=== PATIENT | male | born 1945 | race African-American/Black ===

== ENCOUNTER 2019-03-19 13:58 | Inpatient (IN) ==
[2019-03-19] MEDS ORDERED: ACETAMINOPHEN 325 MG/10.15 ML UDCUP PO STA (14:23)
[2019-03-19] MEDS ORDERED: SODIUM CHLORIDE 0.9% 250 ML IV STA (14:23)
[2019-03-19] MEDS ORDERED: PIPERACILLIN/TAZOBACTAM 3,375 MG in SODIUM CHLORIDE 0.9% 100 ML IV STA (14:35)
[2019-03-19 15:08] LABS: Basophils % 0.1 % (0.0-0.8); Eosinophils % 0.1 % (0.00-10.9); Hematocrit 31.6 VOL% (42.0-52.0); Hemoglobin 10.2 GM/DL (14.0-18.0); Immature Granulocytes % 0.6 %; Immature Granulocytes Absolute 0.07 #; Lymphocytes # 0.8 10*3/uL (1.4-4.0); Lymphocytes % 7.2 % (21.2-54.2); Mean Corpuscular HGB Conc 32.3 GM/DL (32-36); Mean Corpuscular Volume 91.6 FL (87-102); Mean Platelet Volume 11.8 FL (9.6-12.0); Monocytes % 6.8 % (1.7-12.7); Neutrophils % 85.2 % (38.7-73.9); Red Blood Count 3.45 MC/CUMM (3.8-5.5); Red Cell Distribution Width 14.8 % (9.3-17.3); White Blood Count 10.9 T/CUMM (4-12)
[2019-03-19 15:14] LABS: Platelet Count 76 T/CUMM (130-400)
[2019-03-19 15:19] LABS: INR 0.9; PT Patient Result 10.1 SECS (9.6-12.2); Partial Thromboplastin Time < 21.0 SECS (20.8-36.0)
[2019-03-19 15:35] LABS: Albumin 3.4 G/DL (3.4-5.0); Bilirubin,Total 0.6 MG/DL (0.2-1.0); Calcium 9.1 MG/DL (8.5-10.1); Osmolality,Calculated 292.8 MOS/KG (273-304); Total Protein 7.7 G/DL (6.4-8.3)
[2019-03-19] MEDS ORDERED: traMADol 50 MG TABLET PO PRN (17:35)
[2019-03-19] MEDS ORDERED: DEXTROSE 50% 25 GM/50 ML VIAL IV PRN (17:46)
[2019-03-19] MEDS ORDERED: GLUCAGON 1 MG VIAL IM PRN (17:46)
[2019-03-19] MEDS ORDERED: ONDANSETRON 4 MG/2 ML VIAL IV PRN (17:46)
[2019-03-19] MEDS ORDERED: ACETAMINOPHEN 325 MG TABLET PO PRN (17:46)
[2019-03-19] MEDS ORDERED: VANCOMYCIN INJ 500 MG in SODIUM CHLORIDE 0.9% 100 ML IV PRN (18:40)
[2019-03-19] MEDS ORDERED: VANCOMYCIN INJ 1,500 MG in SODIUM CHLORIDE 0.9% 500 ML IV ONE (20:00)
[2019-03-19] MEDS ORDERED: INSULIN GLARGINE 100 UNIT/ML SUBCUT SCH (21:00)
[2019-03-19] MEDS: INSULIN REGULAR 100 UNIT/ML SUBCUT SCH (21:56)
[2019-03-19] MEDS: carvediloL 6.25 MG TABLET PO SCH (21:57)
[2019-03-20] MEDS: PIPERACILLIN/TAZOBACTAM 3,375 MG in SODIUM CHLORIDE 0.9% 100 ML IV SCH ×2 (04:00→18:46)
[2019-03-20 06:01] LABS: Basophils % 0.2 % (0.0-0.8); Eosinophils % 0.1 % (0.00-10.9); Hematocrit 29.2 VOL% (42.0-52.0); Hemoglobin 9.4 GM/DL (14.0-18.0); Immature Granulocytes % 0.5 %; Immature Granulocytes Absolute 0.06 #; Lymphocytes # 1.2 10*3/uL (1.4-4.0); Lymphocytes % 9.4 % (21.2-54.2); Mean Corpuscular HGB Conc 32.2 GM/DL (32-36); Mean Corpuscular Volume 91.5 FL (87-102); Mean Platelet Volume 11.4 FL (9.6-12.0); Monocytes % 8.6 % (1.7-12.7); Neutrophils % 81.2 % (38.7-73.9); Red Blood Count 3.19 MC/CUMM (3.8-5.5); Red Cell Distribution Width 14.8 % (9.3-17.3); White Blood Count 12.5 T/CUMM (4-12)
[2019-03-20 06:04] LABS: Platelet Count 90 T/CUMM (130-400)
[2019-03-20 06:19] LABS: Hypochromasia 1+; Ovalocytes Slight
[2019-03-20 06:20] LABS: Platelet Estimate Decreased
[2019-03-20 06:25] LABS: Calcium 8.8 MG/DL (8.5-10.1)
[2019-03-20] MEDS: INSULIN REGULAR 100 UNIT/ML SUBCUT SCH ×4 (12:11→21:59)
[2019-03-20] MEDS: carvediloL 6.25 MG TABLET PO SCH ×2 (14:53→21:59)
[2019-03-20] MEDS: ROSUVASTATIN 10 MG TABLET PO SCH (14:53)
[2019-03-20] MEDS: ASPIRIN EC 81 MG TABLET PO SCH (14:53)
[2019-03-20] MEDS: PANTOPRAZOLE 40 MG TABLET PO SCH (14:53)
[2019-03-20] MEDS: GABAPENTIN 300 MG CAPSULE PO SCH (14:53)
[2019-03-20] MEDS: GLECAPREVIR PIBRENTASVIR PO SCH (15:06)
[2019-03-20] MEDS ORDERED: VANCOMYCIN INJ 500 MG in SODIUM CHLORIDE 0.9% 100 ML IV ONE (17:00)
[2019-03-20 18:21] LABS: Apearance,Urine CLOUDY (Clear); Bilirubin,Urine Negative (Negative); Blood, Urine Large mg/dL (Negative); Glucose,Urine (UA) Negative (Negative); Ketones,Urine Negative (Negative); Nitrite,Urine Negative (Negative); Protein,Urine 100 MG/DL; RBC,Urine 2451 /HPF (0-4); Urine Color Red (Yellow); Urine Specific Gravity 1.013 (1.001-1.035); Urine Urobilinogen < 2.0 EU/DL (0.2-1.0); WBC,Urine 46 /HPF (0-6)
[2019-03-21] MEDS: PIPERACILLIN/TAZOBACTAM 3,375 MG in SODIUM CHLORIDE 0.9% 100 ML IV SCH ×2 (03:59→17:14)
[2019-03-21 05:04] LABS: Basophils % 0.1 % (0.0-0.8); Eosinophils # 0.1 10*3/uL (0.0-0.87); Eosinophils % 1.3 % (0.00-10.9); Hematocrit 28.1 VOL% (42.0-52.0); Hemoglobin 8.9 GM/DL (14.0-18.0); Immature Granulocytes % 0.4 %; Immature Granulocytes Absolute 0.03 #; Lymphocytes # 1.9 10*3/uL (1.4-4.0); Lymphocytes % 24.3 % (21.2-54.2); Mean Corpuscular HGB Conc 31.7 GM/DL (32-36); Mean Corpuscular Volume 90.6 FL (87-102); Mean Platelet Volume 11.6 FL (9.6-12.0); Monocytes % 11.6 % (1.7-12.7); Neutrophils % 62.3 % (38.7-73.9); Red Cell Distribution Width 14.7 % (9.3-17.3); White Blood Count 7.7 T/CUMM (4-12)
[2019-03-21 05:05] LABS: Platelet Count 86 T/CUMM (130-400)
[2019-03-21 05:24] LABS: Calcium 8.8 MG/DL (8.5-10.1); Osmolality,Calculated 289.7 MOS/KG (273-304)
[2019-03-21 05:35] LABS: Hypochromasia 1+; Platelet Estimate Decreased; Polychromasia Few
[2019-03-21] MEDS: INSULIN REGULAR 100 UNIT/ML SUBCUT SCH ×4 (08:34→20:47)
[2019-03-21] MEDS: GLECAPREVIR PIBRENTASVIR PO SCH (09:36)
[2019-03-21] MEDS: ROSUVASTATIN 10 MG TABLET PO SCH (09:36)
[2019-03-21] MEDS: carvediloL 6.25 MG TABLET PO SCH ×2 (09:36→20:47)
[2019-03-21] MEDS: GABAPENTIN 300 MG CAPSULE PO SCH (09:36)
[2019-03-21] MEDS: PANTOPRAZOLE 40 MG TABLET PO SCH (09:36)
[2019-03-21] MEDS: ASPIRIN EC 81 MG TABLET PO SCH (09:36)
[2019-03-22] MEDS: PIPERACILLIN/TAZOBACTAM 3,375 MG in SODIUM CHLORIDE 0.9% 100 ML IV SCH ×2 (04:21→16:38)
[2019-03-22 06:21] LABS: Basophils % 0.3 % (0.0-0.8); Eosinophils # 0.1 10*3/uL (0.0-0.87); Eosinophils % 1.3 % (0.00-10.9); Hematocrit 26.8 VOL% (42.0-52.0); Hemoglobin 8.5 GM/DL (14.0-18.0); Immature Granulocytes % 0.3 %; Immature Granulocytes Absolute 0.02 #; Lymphocytes # 1.7 10*3/uL (1.4-4.0); Mean Corpuscular HGB Conc 31.7 GM/DL (32-36); Mean Corpuscular Volume 90.2 FL (87-102); Mean Platelet Volume 11.7 FL (9.6-12.0); Monocytes % 12.7 % (1.7-12.7); Neutrophils % 61.4 % (38.7-73.9); Red Blood Count 2.97 MC/CUMM (3.8-5.5); Red Cell Distribution Width 14.3 % (9.3-17.3)
[2019-03-22 06:24] LABS: Platelet Count 91 T/CUMM (130-400)
[2019-03-22 06:44] LABS: Calcium 8.7 MG/DL (8.5-10.1); Osmolality,Calculated 295.4 MOS/KG (273-304)
[2019-03-22] MEDS: INSULIN REGULAR 100 UNIT/ML SUBCUT SCH ×4 (08:26→20:33)
[2019-03-22] MEDS: ROSUVASTATIN 10 MG TABLET PO SCH (09:39)
[2019-03-22] MEDS: ASPIRIN EC 81 MG TABLET PO SCH (09:39)
[2019-03-22] MEDS: carvediloL 6.25 MG TABLET PO SCH ×2 (09:40→20:33)
[2019-03-22] MEDS: GLECAPREVIR PIBRENTASVIR PO SCH (09:40)
[2019-03-22] MEDS: PANTOPRAZOLE 40 MG TABLET PO SCH (09:40)
[2019-03-22] MEDS: GABAPENTIN 300 MG CAPSULE PO SCH (09:41)
[2019-03-23] MEDS: PIPERACILLIN/TAZOBACTAM 3,375 MG in SODIUM CHLORIDE 0.9% 100 ML IV SCH ×2 (04:03→18:25)
[2019-03-23 05:04] LABS: Basophils % 0.3 % (0.0-0.8); Eosinophils # 0.1 10*3/uL (0.0-0.87); Eosinophils % 1.8 % (0.00-10.9); Hematocrit 27.2 VOL% (42.0-52.0); Hemoglobin 8.9 GM/DL (14.0-18.0); Immature Granulocytes % 0.4 %; Immature Granulocytes Absolute 0.03 #; Lymphocytes # 1.2 10*3/uL (1.4-4.0); Lymphocytes % 17.4 % (21.2-54.2); Mean Corpuscular HGB Conc 32.7 GM/DL (32-36); Mean Corpuscular Volume 90.1 FL (87-102); Mean Platelet Volume 11.1 FL (9.6-12.0); Monocytes % 12.4 % (1.7-12.7); Neutrophils % 67.7 % (38.7-73.9); Red Blood Count 3.02 MC/CUMM (3.8-5.5); Red Cell Distribution Width 14.2 % (9.3-17.3); White Blood Count 6.8 T/CUMM (4-12)
[2019-03-23 05:05] LABS: Platelet Count 99 T/CUMM (130-400)
[2019-03-23 05:19] LABS: Calcium 8.4 MG/DL (8.5-10.1); Osmolality,Calculated 297.8 MOS/KG (273-304)
[2019-03-23 05:30] LABS: Microcytosis Slight; Platelet Estimate Decreased
[2019-03-23] MEDS: INSULIN REGULAR 100 UNIT/ML SUBCUT SCH ×4 (08:10→20:30)
[2019-03-23] MEDS: ASPIRIN EC 81 MG TABLET PO SCH (08:10)
[2019-03-23] MEDS: carvediloL 6.25 MG TABLET PO SCH ×2 (08:11→20:30)
[2019-03-23] MEDS: GABAPENTIN 300 MG CAPSULE PO SCH (08:11)
[2019-03-23] MEDS: PANTOPRAZOLE 40 MG TABLET PO SCH (08:11)
[2019-03-23] MEDS: ROSUVASTATIN 10 MG TABLET PO SCH (08:11)
[2019-03-23] MEDS: GLECAPREVIR PIBRENTASVIR PO SCH (14:36)
[2019-03-23] MEDS ORDERED: VANCOMYCIN INJ 500 MG in SODIUM CHLORIDE 0.9% 100 ML IV ONE (17:00)
[2019-03-23] MEDS: ACETAMINOPHEN 500 MG TABLET PO PRN (17:20)
[2019-03-24] MEDS: PIPERACILLIN/TAZOBACTAM 3,375 MG in SODIUM CHLORIDE 0.9% 100 ML IV SCH (03:19)
[2019-03-24 05:37] LABS: Basophils % 0.4 % (0.0-0.8); Eosinophils # 0.1 10*3/uL (0.0-0.87); Eosinophils % 1.8 % (0.00-10.9); Hemoglobin 9.4 GM/DL (14.0-18.0); Immature Granulocytes % 0.3 %; Immature Granulocytes Absolute 0.02 #; Lymphocytes # 1.6 10*3/uL (1.4-4.0); Lymphocytes % 23.4 % (21.2-54.2); Mean Corpuscular HGB Conc 32.4 GM/DL (32-36); Mean Corpuscular Volume 89.8 FL (87-102); Mean Platelet Volume 11.5 FL (9.6-12.0); Monocytes % 9.6 % (1.7-12.7); Neutrophils % 64.5 % (38.7-73.9); Platelet Count 111 T/CUMM (130-400); Red Blood Count 3.23 MC/CUMM (3.8-5.5); White Blood Count 6.8 T/CUMM (4-12)
[2019-03-24 06:01] LABS: Calcium 8.8 MG/DL (8.5-10.1); Osmolality,Calculated 286.8 MOS/KG (273-304)
[2019-03-24] MEDS: INSULIN REGULAR 100 UNIT/ML SUBCUT SCH ×2 (08:16→12:33)
[2019-03-24] MEDS: PANTOPRAZOLE 40 MG TABLET PO SCH (08:16)
[2019-03-24] MEDS: carvediloL 6.25 MG TABLET PO SCH (08:16)
[2019-03-24] MEDS: ASPIRIN EC 81 MG TABLET PO SCH (08:16)
[2019-03-24] MEDS: GLECAPREVIR PIBRENTASVIR PO SCH (08:16)
[2019-03-24] MEDS: GABAPENTIN 300 MG CAPSULE PO SCH (08:17)
[2019-03-24] MEDS: ROSUVASTATIN 10 MG TABLET PO SCH (08:17)
[2019-03-24] MEDS: ACETAMINOPHEN 500 MG TABLET PO PRN (08:18)
[2019-03-24 11:56] VITALS: BP 110/61
[2019-03-25] MEDS ORDERED: EPOETIN ALFA 2,000 UNIT/1 ML VIAL SUBCUT SCH (09:00)
== END 2019-03-24 14:22 | disposition home or self-care (01) | DRG 867 ==
LOC: N.ED 13:58 → N.EDINP 17:46 → N.5E 18:32
PROVIDERS: ADMIT Hospitalist; ATTEND Hospitalist

== ENCOUNTER 2019-08-27 13:02 | Inpatient (IN) ==
[~2019-08-27 13:02] MED LIST: ASPIRIN 325 MG TABLET PO ONE; DEXTROSE 5% NACL 0.45% 1,000 ML IV SCH; DIAZEPAM 5 MG TABLET PO ONE; HEPARIN/NACL 0.9% 2 UNITS/ML 1,000 ML IV ONE; LIDOCAINE 1%/EPI INJ 20 ML VIAL ONE; MAGNESIUM SULF RIDER 2 GM in PREMIX 1 EACH IV PRN; POTASSIUM CHLORIDE RIDER 10 MEQ in PREMIX 1 EACH IV PRN; diphenhydrAMINE CAP 25 MG CAPSULE PO ONE
[2019-08-27] MEDS ORDERED: DIAZEPAM 5 MG TABLET ONE (13:43)
[2019-08-27] MEDS ORDERED: diphenhydrAMINE CAP 25 MG CAPSULE ONE (13:43)
[2019-08-27] MEDS ORDERED: MIDAZOLAM 2 MG/2 ML VIAL ONE (13:55)
[2019-08-27] MEDS ORDERED: fentaNYL 100 MCG/2 ML VIAL ONE (14:21)
[2019-08-27] MEDS ORDERED: traMADol 50 MG TABLET PO PRN (14:47)
[2019-08-27] MEDS ORDERED: GABAPENTIN 300 MG CAPSULE PO PRN (14:47)
[2019-08-27] MEDS: NITROGLYCERIN SL 0.4 MG TABLET SL PRN ×3 (16:37→16:47)
[2019-08-27] MEDS ORDERED: PROMETHAZINE 25 MG TABLET PO PRN (17:14)
[2019-08-27] MEDS ORDERED: MORPHINE 4 MG/1 ML VIAL IV PRN (17:14)
[2019-08-27] MEDS ORDERED: ONDANSETRON 4 MG/2 ML VIAL IV PRN (17:14)
[2019-08-27] MEDS ORDERED: ZALEPLON 5 MG CAPSULE PO PRN (17:14)
[2019-08-27] MEDS ORDERED: NITROGLYCERIN DRIP 50 MG/250 ML BOTTLE IV PRN (17:14)
[2019-08-27] MEDS ORDERED: ALUMINUM/MAGNES/SIMETH MAX STR 30 ML UDCUP PO PRN (17:14)
[2019-08-27] MEDS: ENOXAPARIN 80 MG/0.8 ML SYRINGE SUBCUT SCH (17:54)
[2019-08-27 19:26] LABS: Hepatitis B Core IgM Quant < 0.05 Index; Hepatitis B Surface Ag Quant < 0.10 Index; Hepatitis B Surface Ag Result Negative (Negative); Hepatitis C Virus Ab Quant > 11.00 Index; Hepatitis C Virus Ab Result Positive (Negative)
[2019-08-27] MEDS ORDERED: hydrALAZINE 25 MG TABLET PO SCH (21:00)
[2019-08-27] MEDS: MEGESTROL 40 MG TABLET PO SCH (21:47)
[2019-08-27] MEDS: carvediloL 25 MG TABLET PO SCH (21:48)
[2019-08-27] MEDS: INSULIN GLARGINE 100 UNIT/ML SUBCUT SCH (21:48)
[2019-08-28 06:03] LABS: Basophils % 0.3 % (0.0-0.8); Eosinophils # 0.2 10*3/uL (0.0-0.87); Eosinophils % 3.5 % (0.00-10.9); Hematocrit 28.5 VOL% (42.0-52.0); Hemoglobin 9.1 GM/DL (14.0-18.0); Immature Granulocytes % 0.3 %; Immature Granulocytes Absolute 0.02 #; Lymphocytes % 31.3 % (21.2-54.2); Mean Corpuscular HGB Conc 31.9 GM/DL (32-36); Mean Corpuscular Volume 86.9 FL (87-102); Mean Platelet Volume 11.3 FL (9.6-12.0); Monocytes % 10.1 % (1.7-12.7); Neutrophils % 54.5 % (38.7-73.9); Platelet Count 138 T/CUMM (130-400); Red Blood Count 3.28 MC/CUMM (3.8-5.5); Red Cell Distribution Width 15.9 % (9.3-17.3); White Blood Count 6.4 T/CUMM (4-12)
[2019-08-28 06:15] LABS: Calcium 9.4 MG/DL (8.5-10.1); Osmolality,Calculated 270.1 MOS/KG (273-304)
[2019-08-28] MEDS: ENOXAPARIN 80 MG/0.8 ML SYRINGE SUBCUT SCH ×2 (06:37→17:58)
[2019-08-28] MEDS ORDERED: NITROGLYCERIN 2% OINT 1 INCH/GM PACK TOP SCH ×2 (07:37→12:00)
[2019-08-28] MEDS ORDERED: ROSUVASTATIN 10 MG TABLET PO SCH (09:00)
[2019-08-28 09:55] LABS: Albumin 3.5 G/DL (3.4-5.0); Bilirubin,Direct 0.16 MG/DL (0.0-0.20); Bilirubin,Indirect 0.2 MG/DL (0.0-1.0); Bilirubin,Total 0.4 MG/DL (0.2-1.0); Total Protein 7.5 G/DL (6.4-8.3)
[2019-08-28] MEDS: carvediloL 25 MG TABLET PO SCH ×2 (09:58→21:43)
[2019-08-28] MEDS: ASPIRIN EC 81 MG TABLET PO SCH (09:58)
[2019-08-28] MEDS: PANTOPRAZOLE 40 MG TABLET PO SCH (09:58)
[2019-08-28] MEDS: amLODIPine 5 MG TABLET PO SCH (09:58)
[2019-08-28] MEDS: MEGESTROL 40 MG TABLET PO SCH ×2 (09:58→21:43)
[2019-08-28] MEDS: SACUBITRIL/VALSARTAN 49-51 MG TABLET PO SCH ×2 (09:58→21:43)
[2019-08-28] MEDS: NITROGLYCERIN 2% OINT 1 INCH/GM PACK TOP SCH ×3 (09:59→21:44)
[2019-08-28] MEDS: EPOETIN ALFA-EPBX 2,000 UNIT/ML VIAL SUBCUT SCH (10:40)
[2019-08-28] MEDS: ROSUVASTATIN 20 MG TABLET PO SCH (21:44)
[2019-08-28] MEDS: INSULIN GLARGINE 100 UNIT/ML SUBCUT SCH (21:45)
[2019-08-29 04:30] LABS: Basophils % 0.4 % (0.0-0.8); Eosinophils # 0.2 10*3/uL (0.0-0.87); Hematocrit 26.4 VOL% (42.0-52.0); Hemoglobin 8.6 GM/DL (14.0-18.0); Immature Granulocytes % 0.2 %; Immature Granulocytes Absolute 0.01 #; Mean Corpuscular HGB Conc 32.6 GM/DL (32-36); Mean Corpuscular Volume 85.4 FL (87-102); Mean Platelet Volume 11.1 FL (9.6-12.0); Monocytes % 9.9 % (1.7-12.7); Neutrophils % 50.5 % (38.7-73.9); Platelet Count 98 T/CUMM (130-400); Red Blood Count 3.09 MC/CUMM (3.8-5.5); Red Cell Distribution Width 16.1 % (9.3-17.3); White Blood Count 5.6 T/CUMM (4-12)
[2019-08-29 05:07] LABS: Calcium 9.4 MG/DL (8.5-10.1); Osmolality,Calculated 280.1 MOS/KG (273-304)
[2019-08-29] MEDS: ENOXAPARIN 80 MG/0.8 ML SYRINGE SUBCUT SCH (05:09)
[2019-08-29] MEDS: NITROGLYCERIN 2% OINT 1 INCH/GM PACK TOP SCH ×4 (05:09→21:14)
[2019-08-29 05:11] LABS: Risk Ratio 5.36; VLDL CHOLESTEROL 30.4 MG/DL
[2019-08-29 06:03] LABS: Anisocytosis 1+; Hypochromasia 1+; Microcytosis 1+; Platelet Estimate Decreased
[2019-08-29] MEDS: SACUBITRIL/VALSARTAN 49-51 MG TABLET PO SCH ×2 (10:10→21:13)
[2019-08-29] MEDS: ASPIRIN EC 81 MG TABLET PO SCH (10:11)
[2019-08-29] MEDS: PANTOPRAZOLE 40 MG TABLET PO SCH (10:11)
[2019-08-29] MEDS: amLODIPine 5 MG TABLET PO SCH (10:11)
[2019-08-29] MEDS: carvediloL 25 MG TABLET PO SCH ×2 (10:11→21:14)
[2019-08-29] MEDS: MEGESTROL 40 MG TABLET PO SCH ×2 (10:13→21:14)
[2019-08-29] MEDS: ACETAMINOPHEN 325 MG TABLET PO PRN (10:22)
[2019-08-29] MEDS ORDERED: GLUCAGON 1 MG VIAL IM PRN (15:52)
[2019-08-29] MEDS ORDERED: DEXTROSE 10% 250 ML BAG IV PRN (15:52)
[2019-08-29] MEDS ORDERED: SODIUM CHLORIDE 0.9% 1,000 ML IV SCH (16:00)
[2019-08-29] MEDS: INSULIN GLARGINE 100 UNIT/ML SUBCUT SCH (21:14)
[2019-08-29] MEDS: ROSUVASTATIN 20 MG TABLET PO SCH (21:14)
[2019-08-29] MEDS: CHLORHEXIDINE 0.12% ORAL RINSE 60 ML BOTTLE SWISH/SPIT SCH (21:15)
[2019-08-30] MEDS: NITROGLYCERIN 2% OINT 1 INCH/GM PACK TOP SCH ×4 (04:25→21:00)
[2019-08-30 05:18] LABS: Basophils % 0.4 % (0.0-0.8); Eosinophils # 0.2 10*3/uL (0.0-0.87); Eosinophils % 3.1 % (0.00-10.9); Hematocrit 27.5 VOL% (42.0-52.0); Hemoglobin 8.9 GM/DL (14.0-18.0); Immature Granulocytes % 0.2 %; Immature Granulocytes Absolute 0.01 #; Lymphocytes # 1.6 10*3/uL (1.4-4.0); Lymphocytes % 32.5 % (21.2-54.2); Mean Corpuscular HGB Conc 32.4 GM/DL (32-36); Mean Corpuscular Volume 85.4 FL (87-102); Mean Platelet Volume 11.8 FL (9.6-12.0); Neutrophils % 52.8 % (38.7-73.9); Platelet Count 105 T/CUMM (130-400); Red Blood Count 3.22 MC/CUMM (3.8-5.5); Red Cell Distribution Width 16.5 % (9.3-17.3); White Blood Count 4.9 T/CUMM (4-12)
[2019-08-30 05:34] LABS: Calcium 9.2 MG/DL (8.5-10.1); Osmolality,Calculated 281.7 MOS/KG (273-304)
[2019-08-30 05:37] LABS: Albumin 3.1 G/DL (3.4-5.0); Bilirubin,Total 0.6 MG/DL (0.2-1.0); Calcium 9.3 MG/DL (8.5-10.1); Osmolality,Calculated 283.5 MOS/KG (273-304); Total Protein 6.8 G/DL (6.4-8.3)
[2019-08-30] MEDS ORDERED: ENOXAPARIN 80 MG/0.8 ML SYRINGE SUBCUT SCH (06:00)
[2019-08-30 09:18] LABS: ABG Base Excess 2.6 MMOL/L (-2.5-2.5); ABG HCO3 25.6 MMOL/L (20-26); ABG Oxygen Saturation 89.5 % (95-100); ABG PCO2 32.8 MM HG (35-48); ABG PH 7.511 (7.35-7.45); ABG PO2 83.7 MM HG (80-95); ABG TCO2 26.7 MMOL/L (23-27)
[2019-08-30] MEDS: carvediloL 25 MG TABLET PO SCH ×2 (09:59→21:00)
[2019-08-30] MEDS: ASPIRIN EC 81 MG TABLET PO SCH (09:59)
[2019-08-30] MEDS: SACUBITRIL/VALSARTAN 49-51 MG TABLET PO SCH ×2 (09:59→21:00)
[2019-08-30] MEDS: amLODIPine 5 MG TABLET PO SCH (09:59)
[2019-08-30] MEDS: MEGESTROL 40 MG TABLET PO SCH ×2 (09:59→21:00)
[2019-08-30] MEDS: PANTOPRAZOLE 40 MG TABLET PO SCH (09:59)
[2019-08-30] MEDS: CHLORHEXIDINE 0.12% ORAL RINSE 60 ML BOTTLE SWISH/SPIT SCH ×2 (09:59→21:02)
[2019-08-30] MEDS: CHLORHEXIDINE 4% SOLN 118 ML BOTTLE TOP SCH ×2 (10:40→21:00)
[2019-08-30] MEDS: ACETAMINOPHEN 325 MG TABLET PO PRN (20:59)
[2019-08-30] MEDS: ROSUVASTATIN 20 MG TABLET PO SCH (21:00)
[2019-08-30] MEDS: INSULIN GLARGINE 100 UNIT/ML SUBCUT SCH (21:18)
[2019-08-31] MEDS: NITROGLYCERIN 2% OINT 1 INCH/GM PACK TOP SCH ×2 (04:01→09:00)
[2019-08-31] MEDS: CHLORHEXIDINE 4% SOLN 118 ML BOTTLE TOP SCH ×2 (04:20→09:00)
[2019-08-31 05:41] LABS: Basophils % 0.3 % (0.0-0.8); Eosinophils # 0.2 10*3/uL (0.0-0.87); Eosinophils % 3.4 % (0.00-10.9); Hematocrit 29.4 VOL% (42.0-52.0); Hemoglobin 9.7 GM/DL (14.0-18.0); Immature Granulocytes % 0.3 %; Immature Granulocytes Absolute 0.02 #; Lymphocytes % 31.5 % (21.2-54.2); Mean Corpuscular Volume 86.2 FL (87-102); Mean Platelet Volume 12.1 FL (9.6-12.0); Monocytes % 8.2 % (1.7-12.7); Neutrophils % 56.3 % (38.7-73.9); Platelet Count 120 T/CUMM (130-400); Red Blood Count 3.41 MC/CUMM (3.8-5.5); Red Cell Distribution Width 16.9 % (9.3-17.3); White Blood Count 6.5 T/CUMM (4-12)
[2019-08-31] MEDS ORDERED: VANCOMYCIN 500 MG VIAL ONE (05:53)
[2019-08-31] MEDS ORDERED: HEPARIN 1,000 UNIT/1 ML VIAL ONE ×2 (05:53→05:55)
[2019-08-31] MEDS ORDERED: VANCOMYCIN 1,000 MG VIAL ONE ×2 (05:54→06:03)
[2019-08-31] MEDS ORDERED: FAMOTIDINE 20 MG TABLET PO ONE (05:54)
[2019-08-31] MEDS ORDERED: DIAZEPAM 5 MG TABLET PO ONE (05:55)
[2019-08-31] MEDS ORDERED: PAPAVERINE 60 MG/2 ML VIAL ONE (05:55)
[2019-08-31 06:02] LABS: Calcium 9.8 MG/DL (8.5-10.1)
[2019-08-31] MEDS: CHLORHEXIDINE 0.12% ORAL RINSE 60 ML BOTTLE SWISH/SPIT SCH ×3 (06:03→20:47)
[2019-08-31] MEDS: carvediloL 25 MG TABLET PO SCH ×2 (06:03→09:00)
[2019-08-31 06:05] LABS: Calcium 9.9 MG/DL (8.5-10.1)
[2019-08-31] MEDS ORDERED: CEFUROXIME INJ 1,500 MG in SODIUM CHLORIDE 0.9% 100 ML IV ONE (06:30)
[2019-08-31] MEDS ORDERED: SODIUM CHLORIDE 0.9% 1,000 ML IV SCH (06:30)
[2019-08-31 08:06] LABS: ABG Base Excess 0.7 MMOL/L (-2.5-2.5); ABG HCO3 22.6 MMOL/L (20-26); ABG PH 7.509 (7.35-7.45); ABG PO2 473.2 MM HG (80-95); ABG TCO2 23.5 MMOL/L (23-27); Glucose Heart Surgery 126 MG/DL (74-106); Ionized Calcium Arterial 1.11 MMOL/L (1.21-1.46); PH Patient Temp Arterial 7.509; PO2 Patient Temp Arterial 473.2 MM HG; Patient Temperature 37 CELCIUS; Potassium Heart/CVR 3.8 MMOL/L (3.5-5.1); Sodium Heart/CVR 135 MMOL/L (135-145)
[2019-08-31 08:13] LABS: ABG Oxygen Saturation 99.9 % (95-100)
[2019-08-31 08:14] LABS: Hematocrit Heart Surgery 22.6 PERCENT (42-52); Hemoglobin Heart Surgery 7.6 G/DL (14.0-18.0)
[2019-08-31 08:34] LABS: Apearance,Urine CLEAR (Clear); Bacteria,Urine Occasional /HPF (Few); Bilirubin,Urine Negative (Negative); Blood, Urine Moderate mg/dL (Negative); Glucose,Urine (UA) Negative (Negative); Ketones,Urine Negative (Negative); Nitrite,Urine Negative (Negative); Protein,Urine >=500 MG/DL; RBC,Urine 141 /HPF (0-4); Squamous Epithelial Cell,Urine Occasional /HPF (0-10); Urine Color Yellow (Yellow); Urine Specific Gravity 1.012 (1.001-1.035); Urine Urobilinogen < 2.0 EU/DL (0.2-1.0); WBC,Urine 1 /HPF (0-6)
[2019-08-31 08:56] LABS: Hematocrit Heart Surgery 18.3 PERCENT (42-52); PCO2 Patient Temp Venous 31.7 MM HG; PH Patient Temp Venous 7.486; Potassium Heart/CVR 4.5 MMOL/L (3.5-5.1); VBG Base Excess 0.8 MEQ/L (0-4); VBG HCO3 24.9 MEQ/L (24-28); VBG Oxygen Saturation 77.5 %; VBG PCO2 34.9 MMHG (41-51); VBG PH 7.456; VBG PO2 45.9 MMHG (17-40)
[2019-08-31 08:57] LABS: Hemoglobin Heart Surgery 5.8 G/DL (14.0-18.0)
[2019-08-31] MEDS: SACUBITRIL/VALSARTAN 49-51 MG TABLET PO SCH (09:00)
[2019-08-31] MEDS: PANTOPRAZOLE 40 MG TABLET PO SCH (09:00)
[2019-08-31] MEDS: EPOETIN ALFA-EPBX 2,000 UNIT/ML VIAL SUBCUT SCH (09:00)
[2019-08-31] MEDS: ASPIRIN EC 81 MG TABLET PO SCH (09:00)
[2019-08-31] MEDS: MEGESTROL 40 MG TABLET PO SCH (09:00)
[2019-08-31] MEDS: amLODIPine 5 MG TABLET PO SCH (09:00)
[2019-08-31] MEDS ORDERED: NITROPRUSSIDE 50 MG/2 ML VIAL ONE (09:27)
[2019-08-31] MEDS ORDERED: CALCIUM CHLORIDE 1,000 MG/10 ML SYRINGE IV ONE ×2 (09:27→14:30)
[2019-08-31] MEDS ORDERED: SODIUM BICARBONATE 50 MEQ/50 ML VIAL IV ONE ×2 (09:27→10:34)
[2019-08-31] MEDS ORDERED: PHENYLEPHRINE DRIP 40 MG/250 ML PREMIX IV ONE (09:27)
[2019-08-31] MEDS ORDERED: POTASSIUM CHLORIDE RIDER 100 ML IV ONE (09:28)
[2019-08-31 09:31] LABS: Hematocrit Heart Surgery 26.1 PERCENT (42-52); Hemoglobin Heart Surgery 8.4 G/DL (14.0-18.0); PCO2 Patient Temp Venous 26.2 MM HG; PH Patient Temp Venous 7.47; Potassium Heart/CVR 4.1 MMOL/L (3.5-5.1); VBG Base Excess -3.7 MEQ/L (0-4); VBG HCO3 21.1 MEQ/L (24-28); VBG Oxygen Saturation 84.4 %; VBG PCO2 30.3 MMHG (41-51); VBG PH 7.426; VBG PO2 51.5 MMHG (17-40)
[2019-08-31 10:00] LABS: Hematocrit Heart Surgery 23.7 PERCENT (42-52); Hemoglobin Heart Surgery 7.6 G/DL (14.0-18.0); PCO2 Patient Temp Venous 30.4 MM HG; PH Patient Temp Venous 7.416; PO2 Patient Temp Venous 39.8 MM HG; Potassium Heart/CVR 4.3 MMOL/L (3.5-5.1); VBG Base Excess -4.3 MEQ/L (0-4); VBG HCO3 20.6 MEQ/L (24-28); VBG Oxygen Saturation 75.4 %; VBG PCO2 31.9 MMHG (41-51); VBG PH 7.402; VBG PO2 42.6 MMHG (17-40)
[2019-08-31] MEDS ORDERED: MANNITOL 100 GM/500 ML BAG IV ONE (10:33)
[2019-08-31] MEDS ORDERED: LIDOCAINE 2% 5 ML VIAL ONE (10:33)
[2019-08-31] MEDS ORDERED: DEXTROSE 5% KCL 20 MEQ 20 MEQ/1,000 ML BAG IV ONE (10:33)
[2019-08-31] MEDS ORDERED: HEPARIN 10,000 UNIT/10 ML VIAL ONE (10:34)
[2019-08-31] MEDS ORDERED: methylPREDNISolone SOD SUC 1,000 MG/8 ML VIAL ONE (10:34)
[2019-08-31] MEDS ORDERED: MAGNESIUM SULFATE 5 GM/10 ML VIAL IV ONE (10:34)
[2019-08-31] MEDS ORDERED: PROTAMINE SULFATE 50 MG/5 ML VIAL IV ONE ×4 (10:34→17:33)
[2019-08-31] MEDS ORDERED: FUROSEMIDE 20 MG/2 ML VIAL ONE (10:34)
[2019-08-31] MEDS ORDERED: ALBUMIN 25% 25 GM/100 ML VIAL IV ONE (10:34)
[2019-08-31] MEDS ORDERED: PROTAMINE SULFATE 250 MG/25 ML VIAL IV ONE (10:34)
[2019-08-31 10:41] LABS: ABG Base Excess -2.5 MMOL/L (-2.5-2.5); ABG HCO3 22.2 MMOL/L (20-26); ABG Oxygen Saturation 96.2 % (95-100); ABG PCO2 32.9 MM HG (35-48); ABG PH 7.421 (7.35-7.45); Glucose Heart Surgery 188 MG/DL (74-106); Hematocrit Heart Surgery 24.6 PERCENT (42-52); Hemoglobin Heart Surgery 7.9 G/DL (14.0-18.0); Ionized Calcium Arterial 1.06 MMOL/L (1.21-1.46); PCO2 Patient Temp Arterial 32.9 MMHG; PH Patient Temp Arterial 7.421; Patient Temperature 37 CELCIUS; Potassium Heart/CVR 4.3 MMOL/L (3.5-5.1); Sodium Heart/CVR 136 MMOL/L (135-145)
[2019-08-31] MEDS ORDERED: THROMBIN TOPICAL (RECOMBINANT) 5,000 UNIT VIAL TOP ONE (10:51)
[2019-08-31] MEDS ORDERED: NITROGLYCERIN DRIP 0 MG/0 ML BOTTLE IV ONE (11:09)
[2019-08-31] MEDS ORDERED: MAGNESIUM SULF RIDER 2 GM in PREMIX 1 EACH IV PRN (11:22)
[2019-08-31] MEDS ORDERED: VECURONIUM 10 MG VIAL IV PRN ×2 (11:22)
[2019-08-31] MEDS ORDERED: CALCIUM CHLORIDE 1,000 MG/10 ML SYRINGE IV PRN (11:22)
[2019-08-31] MEDS ORDERED: INSULIN REGULAR 100 UNIT/ML IV ONE (11:22)
[2019-08-31] MEDS ORDERED: ACETAMINOPHEN 650 MG SUPP RECTAL PRN (11:22)
[2019-08-31] MEDS ORDERED: POTASSIUM CHLORIDE RIDER 20 MEQ in PREMIX 1 EACH IV PRN (11:22)
[2019-08-31] MEDS ORDERED: MORPHINE 10 MG/1 ML VIAL IV PRN (11:22)
[2019-08-31] MEDS ORDERED: CHLORHEXIDINE 4% SOLN 118 ML BOTTLE TOP PRN (11:22)
[2019-08-31] MEDS ORDERED: INSULIN REGULAR 100 UNIT/ML IV PRN (11:22)
[2019-08-31] MEDS ORDERED: MIDAZOLAM 2 MG/2 ML VIAL IV PRN (11:22)
[2019-08-31] MEDS ORDERED: NITROPRUSSIDE 100 MG in DEXTROSE 5% 250 ML IV PRN (11:22)
[2019-08-31] MEDS ORDERED: LACTATED RINGERS 250 ML IV PRN (11:22)
[2019-08-31] MEDS ORDERED: MAGNESIUM SULF RIDER 4 GM in PREMIX 1 EACH IV PRN (11:22)
[2019-08-31] MEDS ORDERED: MIDAZOLAM 10 MG/2 ML VIAL IV PRN (11:22)
[2019-08-31] MEDS ORDERED: ONDANSETRON 4 MG/2 ML VIAL IV PRN (11:22)
[2019-08-31] MEDS ORDERED: POTASSIUM CHLORIDE RIDER 10 MEQ in PREMIX 1 EACH IV PRN (11:22)
[2019-08-31] MEDS ORDERED: DEXTROSE 10% 250 ML BAG IV PRN ×2 (11:22)
[2019-08-31] MEDS ORDERED: INSULIN REGULAR DRIP 100 ML IV SCH (11:30)
[2019-08-31] MEDS ORDERED: SODIUM CHLORIDE 0.45% 1,000 ML IV SCH (11:30)
[2019-08-31] MEDS: PHENYLEPHRINE DRIP 40 MG/250 ML PREMIX IV PRN ×3 (12:00→20:46)
[2019-08-31] MEDS: SODIUM CHLORIDE 0.45% 1,000 ML IV SCH (12:00)
[2019-08-31] MEDS ORDERED: SODIUM CHLORIDE 0.9% 1,000 ML IV PRN ×2 (12:05→13:59)
[2019-08-31] MEDS ORDERED: CALCIUM CHLORIDE 1,000 MG/10 ML VIAL IV ONE (12:08)
[2019-08-31] MEDS ORDERED: PHENYLEPHRINE DRIP 20 MG/250 ML PREMIX IV ONE (12:08)
[2019-08-31] MEDS ORDERED: MIDAZOLAM 10 MG/2 ML VIAL ONE ×2 (12:08)
[2019-08-31] MEDS ORDERED: SUFentanil 250 MCG/5 ML AMP ONE (12:08)
[2019-08-31] MEDS ORDERED: SEVOFLURANE 1 UNIT/15 MINUTE INH ONE (12:08)
[2019-08-31] MEDS ORDERED: HEPARIN/NACL 0.9% 2 UNITS/ML 500 ML IV ONE (12:08)
[2019-08-31] MEDS ORDERED: AMINOCAPROIC ACID 5,000 MG/20 ML VIAL ONE (12:09)
[2019-08-31] MEDS ORDERED: LACTATED RINGERS 1,000 ML IV ONE (12:09)
[2019-08-31] MEDS ORDERED: NITROGLYCERIN DRIP 50 MG/250 ML BOTTLE IV ONE (12:09)
[2019-08-31] MEDS ORDERED: SODIUM CHLORIDE 0.9% 250 ML IV ONE (12:09)
[2019-08-31] MEDS ORDERED: VECURONIUM 10 MG VIAL IV ONE (12:09)
[2019-08-31] MEDS ORDERED: PHENYLEPHRINE 1 MG/10 ML SYRINGE IV ONE (12:09)
[2019-08-31] MEDS ORDERED: SODIUM CHLORIDE 0.9% 1,000 ML IV ONE (12:09)
[2019-08-31 12:22] LABS: ABG Base Excess -3.8 MMOL/L (-2.5-2.5); ABG HCO3 21.2 MMOL/L (20-26); ABG PCO2 30.2 MM HG (35-48); ABG PH 7.427 (7.35-7.45); ABG TCO2 18.6 MMOL/L (23-27); Glucose Heart Surgery 193 MG/DL (74-106); Hematocrit Heart Surgery 23.8 PERCENT (42-52); Hemoglobin Heart Surgery 7.6 G/DL (14.0-18.0); Potassium Heart/CVR 4.3 MMOL/L (3.5-5.1)
[2019-08-31 12:31] LABS: Basophils % 0.2 % (0.0-0.8); Eosinophils # 0.1 10*3/uL (0.0-0.87); Hematocrit 21.8 VOL% (42.0-52.0); Immature Granulocytes % 0.9 %; Lymphocytes # 1.1 10*3/uL (1.4-4.0); Lymphocytes % 10.4 % (21.2-54.2); Mean Corpuscular HGB Conc 33.5 GM/DL (32-36); Mean Corpuscular Volume 87.6 FL (87-102); Mean Platelet Volume 10.7 FL (9.6-12.0); Monocytes % 5.4 % (1.7-12.7); Neutrophils % 82.1 % (38.7-73.9); Platelet Count 107 T/CUMM (130-400); Red Cell Distribution Width 16.7 % (9.3-17.3)
[2019-08-31 12:32] LABS: Hemoglobin 7.3 GM/DL (14.0-18.0); Red Blood Count 2.49 MC/CUMM (3.8-5.5); White Blood Count 10.5 T/CUMM (4-12)
[2019-08-31 12:41] LABS: INR 1.2; PT Patient Result 13.1 SECS (9.6-12.2); Partial Thromboplastin Time 27.2 SECS (20.8-36.0)
[2019-08-31 12:45] LABS: CKMB % 8.1 %
[2019-08-31 12:49] LABS: Troponin I 11.2 NG/ML (0.00-0.045)
[2019-08-31 12:51] LABS: Albumin 2.8 G/DL (3.4-5.0); Bilirubin,Total 0.5 MG/DL (0.2-1.0); Calcium 9.7 MG/DL (8.5-10.1); Osmolality,Calculated 289.5 MOS/KG (273-304); Total Protein 5.3 G/DL (6.4-8.3)
[2019-08-31] MEDS: ALBUMIN 5% 12.5 GM in PREMIX 1 EACH IV PRN ×3 (14:24→15:22)
[2019-08-31] MEDS ORDERED: CALCIUM CHLORIDE 1,000 MG in SODIUM CHLORIDE 0.9% 100 ML IV ONE (14:30)
[2019-08-31] MEDS: MORPHINE 4 MG/1 ML VIAL IV PRN ×2 (16:30→21:18)
[2019-08-31 16:46] LABS: ABG Base Excess 4.6 MMOL/L (-2.5-2.5); ABG HCO3 28.5 MMOL/L (20-26); ABG Oxygen Saturation 97.3 % (95-100); ABG PCO2 37.4 MM HG (35-48); ABG PH 7.485 (7.35-7.45); ABG TCO2 25.4 MMOL/L (23-27); Glucose Heart Surgery 100 MG/DL (74-106); Hematocrit Heart Surgery 31.5 PERCENT (42-52); Hemoglobin Heart Surgery 10.2 G/DL (14.0-18.0); Potassium Heart/CVR 3.4 MMOL/L (3.5-5.1)
[2019-08-31] MEDS: CEFUROXIME INJ 1,500 MG in SYRINGE 1 EACH IV SCH (18:45)
[2019-08-31 19:07] LABS: ABG Base Excess 2.6 MMOL/L (-2.5-2.5); ABG HCO3 26.7 MMOL/L (20-26); ABG Oxygen Saturation 97.2 % (95-100); ABG PCO2 31.9 MM HG (35-48); ABG PH 7.508 (7.35-7.45); ABG TCO2 23.4 MMOL/L (23-27); Glucose Heart Surgery 96 MG/DL (74-106); Hemoglobin Heart Surgery 8.7 G/DL (14.0-18.0); Potassium Heart/CVR 4.2 MMOL/L (3.5-5.1)
[2019-08-31 19:28] LABS: CKMB % 5.2 %
[2019-08-31 19:51] LABS: Troponin I 16.3 NG/ML (0.00-0.045)
[2019-08-31 22:10] LABS: ABG Base Excess 0.4 MMOL/L (-2.5-2.5); ABG HCO3 24.8 MMOL/L (20-26); ABG Oxygen Saturation 96.7 % (95-100); ABG PCO2 38.1 MM HG (35-48); ABG TCO2 22.9 MMOL/L (23-27); Glucose Heart Surgery 133 MG/DL (74-106); Hemoglobin Heart Surgery 8.7 G/DL (14.0-18.0); Potassium Heart/CVR 4.5 MMOL/L (3.5-5.1)
[2019-09-01 03:25] LABS: ABG HCO3 24.4 MMOL/L (20-26); ABG Oxygen Saturation 95.6 % (95-100); ABG PCO2 35.1 MM HG (35-48); ABG PO2 89.9 MM HG (80-95); ABG TCO2 22.1 MMOL/L (23-27); Glucose Heart Surgery 133 MG/DL (74-106); Hematocrit Heart Surgery 26.3 PERCENT (42-52); Hemoglobin Heart Surgery 8.5 G/DL (14.0-18.0); Potassium Heart/CVR 4.7 MMOL/L (3.5-5.1)
[2019-09-01 03:34] LABS: Basophils % 0.1 % (0.0-0.8); Hematocrit 24.1 VOL% (42.0-52.0); Hemoglobin 7.9 GM/DL (14.0-18.0); Immature Granulocytes % 0.6 %; Immature Granulocytes Absolute 0.06 #; Lymphocytes # 1.2 10*3/uL (1.4-4.0); Mean Corpuscular HGB Conc 32.8 GM/DL (32-36); Monocytes % 6.7 % (1.7-12.7); Neutrophils % 81.6 % (38.7-73.9); Platelet Count 104 T/CUMM (130-400); Red Blood Count 2.74 MC/CUMM (3.8-5.5); Red Cell Distribution Width 15.9 % (9.3-17.3); White Blood Count 10.8 T/CUMM (4-12)
[2019-09-01 03:52] LABS: Albumin 3.1 G/DL (3.4-5.0); Bilirubin,Direct 0.14 MG/DL (0.0-0.20); Bilirubin,Total 0.4 MG/DL (0.2-1.0); Calcium 9.3 MG/DL (8.5-10.1); Osmolality,Calculated 283.7 MOS/KG (273-304)
[2019-09-01 03:54] LABS: CKMB % 5.9 %
[2019-09-01 03:59] LABS: Troponin I 12.2 NG/ML (0.00-0.045)
[2019-09-01 04:41] LABS: ABG HCO3 24.4 MMOL/L (20-26); ABG Oxygen Saturation 95.5 % (95-100); ABG PCO2 32.5 MM HG (35-48); ABG PH 7.461 (7.35-7.45); ABG PO2 88.6 MM HG (80-95); ABG TCO2 20.7 MMOL/L (23-27); Glucose Heart Surgery 129 MG/DL (74-106); Hematocrit Heart Surgery 34.3 PERCENT (42-52); Hemoglobin Heart Surgery 11.1 G/DL (14.0-18.0)
[2019-09-01 05:33] LABS: ABG Base Excess -0.5 MMOL/L (-2.5-2.5); ABG Oxygen Saturation 93.4 % (95-100); ABG PCO2 32.6 MM HG (35-48); ABG PH 7.466 (7.35-7.45); ABG PO2 87.2 MM HG (80-95); Glucose Heart Surgery 115 MG/DL (74-106); Hemoglobin Heart Surgery 7.7 G/DL (14.0-18.0); Potassium Heart/CVR 5.1 MMOL/L (3.5-5.1)
[2019-09-01] MEDS: CEFUROXIME INJ 1,500 MG in SYRINGE 1 EACH IV SCH ×2 (06:30→20:15)
[2019-09-01 06:31] LABS: ABG Base Excess -1.2 MMOL/L (-2.5-2.5); ABG HCO3 22.5 MMOL/L (20-26); ABG Oxygen Saturation 93.4 % (95-100); ABG PH 7.452 (7.35-7.45); ABG PO2 91.1 MM HG (80-95); ABG TCO2 23.5 MMOL/L (23-27); Glucose Heart Surgery 110 MG/DL (74-106); Hemoglobin Heart Surgery 7.6 G/DL (14.0-18.0); Potassium Heart/CVR 5.5 MMOL/L (3.5-5.1)
[2019-09-01] MEDS: INSULIN REGULAR 100 UNIT/ML SUBCUT SCH ×4 (08:00→20:33)
[2019-09-01 08:10] LABS: ABG Base Excess -0.8 MMOL/L (-2.5-2.5); ABG HCO3 22.8 MMOL/L (20-26); ABG Oxygen Saturation 93.6 % (95-100); ABG PCO2 32.7 MM HG (35-48); ABG PH 7.461 (7.35-7.45); ABG PO2 88.6 MM HG (80-95); ABG TCO2 23.8 MMOL/L (23-27); Glucose Heart Surgery 145 MG/DL (74-106); Hemoglobin Heart Surgery 7.4 G/DL (14.0-18.0); Potassium Heart/CVR 5.4 MMOL/L (3.5-5.1)
[2019-09-01] MEDS: amLODIPine 5 MG TABLET PO SCH (08:50)
[2019-09-01] MEDS: carvediloL 25 MG TABLET PO SCH ×2 (08:50→21:04)
[2019-09-01] MEDS: hydrALAZINE 25 MG TABLET PO SCH ×2 (08:50→21:03)
[2019-09-01] MEDS: MORPHINE 4 MG/1 ML VIAL IV PRN (08:50)
[2019-09-01] MEDS: ASPIRIN EC 81 MG TABLET PO SCH (08:50)
[2019-09-01] MEDS: CHLORHEXIDINE 0.12% ORAL RINSE 60 ML BOTTLE SWISH/SPIT SCH ×2 (08:50→21:04)
[2019-09-01] MEDS: SODIUM CHLORIDE 0.45% 1,000 ML IV SCH (12:22)
[2019-09-01 12:23] LABS: ABG Base Excess -2.5 MMOL/L (-2.5-2.5); ABG HCO3 22.3 MMOL/L (20-26); ABG Oxygen Saturation 94.5 % (95-100); ABG PCO2 33.2 MM HG (35-48); ABG TCO2 20.3 MMOL/L (23-27)
[2019-09-01 12:44] LABS: CKMB % 5.4 %
[2019-09-01 12:45] LABS: Troponin I 9.45 NG/ML (0.00-0.045)
[2019-09-01] MEDS: ALBUTEROL/IPRATROPIUM 3 ML NEB RESP TX SCH ×2 (15:20→20:17)
[2019-09-01] MEDS ORDERED: CALCIUM GLUCONATE 1,000 MG in SODIUM CHLORIDE 0.9% 100 ML IV ONE (17:35)
[2019-09-01] MEDS: ROSUVASTATIN 20 MG TABLET PO SCH (21:04)
[2019-09-02] MEDS: INSULIN REGULAR 100 UNIT/ML SUBCUT SCH ×6 (00:07→21:17)
[2019-09-02] MEDS: ALBUTEROL/IPRATROPIUM 3 ML NEB RESP TX SCH ×5 (02:03→20:01)
[2019-09-02 03:44] LABS: Hematocrit 19.2 VOL% (42.0-52.0); Immature Granulocytes % 0.5 %; Immature Granulocytes Absolute 0.05 #; Lymphocytes # 0.7 10*3/uL (1.4-4.0); Lymphocytes % 7.9 % (21.2-54.2); Mean Corpuscular HGB Conc 31.8 GM/DL (32-36); Mean Corpuscular Volume 90.1 FL (87-102); Mean Platelet Volume 12.1 FL (9.6-12.0); Monocytes % 8.3 % (1.7-12.7); Neutrophils % 83.3 % (38.7-73.9); Platelet Count 71 T/CUMM (130-400); Red Blood Count 2.13 MC/CUMM (3.8-5.5); Red Cell Distribution Width 16.7 % (9.3-17.3); White Blood Count 9.2 T/CUMM (4-12)
[2019-09-02 03:59] LABS: Albumin 3.2 G/DL (3.4-5.0); Bilirubin,Direct 0.13 MG/DL (0.0-0.20); Bilirubin,Total 0.4 MG/DL (0.2-1.0); Calcium 8.9 MG/DL (8.5-10.1); Osmolality,Calculated 292.5 MOS/KG (273-304); Total Protein 6.1 G/DL (6.4-8.3)
[2019-09-02 04:00] LABS: CKMB % 3.3 %
[2019-09-02 04:08] LABS: Troponin I 7.88 NG/ML (0.00-0.045)
[2019-09-02 04:14] LABS: Hemoglobin 6.1 GM/DL (14.0-18.0)
[2019-09-02 04:20] LABS: Hypochromasia 1+; Ovalocytes Slight; Platelet Estimate Decreased
[2019-09-02 07:59] LABS: Hematocrit 18.7 VOL% (42.0-52.0); Immature Granulocytes % 0.4 %; Immature Granulocytes Absolute 0.04 #; Lymphocytes # 0.7 10*3/uL (1.4-4.0); Lymphocytes % 7.4 % (21.2-54.2); Mean Corpuscular HGB Conc 32.6 GM/DL (32-36); Mean Corpuscular Volume 89.9 FL (87-102); Mean Platelet Volume 12.5 FL (9.6-12.0); Monocytes % 7.3 % (1.7-12.7); Neutrophils % 84.9 % (38.7-73.9); Red Blood Count 2.08 MC/CUMM (3.8-5.5); Red Cell Distribution Width 16.7 % (9.3-17.3); White Blood Count 9.3 T/CUMM (4-12)
[2019-09-02 08:03] LABS: Hemoglobin 6.1 GM/DL (14.0-18.0); Platelet Count 73 T/CUMM (130-400)
[2019-09-02] MEDS ORDERED: SODIUM CHLORIDE 0.9% 1,000 ML IV PRN ×2 (08:03→08:10)
[2019-09-02 08:39] LABS: Platelet Estimate Decreased
[2019-09-02 08:40] LABS: Anisocytosis 1+; Hypochromasia 1+; Polychromasia Slight
[2019-09-02 08:41] LABS: Macrocytosis Slight
[2019-09-02] MEDS ORDERED: FUROSEMIDE 40 MG/4 ML VIAL IV ONE (09:28)
[2019-09-02] MEDS: CHLORHEXIDINE 0.12% ORAL RINSE 60 ML BOTTLE SWISH/SPIT SCH ×2 (09:42→21:18)
[2019-09-02] MEDS: hydrALAZINE 25 MG TABLET PO SCH ×2 (09:42→21:17)
[2019-09-02] MEDS: carvediloL 25 MG TABLET PO SCH ×2 (09:42→21:17)
[2019-09-02] MEDS: SACUBITRIL/VALSARTAN 49-51 MG TABLET PO SCH ×2 (09:42→21:17)
[2019-09-02] MEDS: ASPIRIN EC 81 MG TABLET PO SCH (09:42)
[2019-09-02] MEDS: SODIUM CHLORIDE 0.45% 1,000 ML IV SCH (10:44)
[2019-09-02] MEDS: amLODIPine 5 MG TABLET PO SCH ×2 (11:39→11:41)
[2019-09-02] MEDS: ROSUVASTATIN 20 MG TABLET PO SCH (21:17)
[2019-09-03] MEDS: INSULIN REGULAR 100 UNIT/ML SUBCUT SCH ×4 (00:21→22:21)
[2019-09-03] MEDS: ALBUTEROL/IPRATROPIUM 3 ML NEB RESP TX SCH ×2 (01:13→07:28)
[2019-09-03 05:26] LABS: Basophils % 0.1 % (0.0-0.8); Hematocrit 25.2 VOL% (42.0-52.0); Hemoglobin 8.2 GM/DL (14.0-18.0); Immature Granulocytes Absolute 0.09 #; Lymphocytes # 0.6 10*3/uL (1.4-4.0); Lymphocytes % 6.6 % (21.2-54.2); Mean Corpuscular HGB Conc 32.5 GM/DL (32-36); Mean Platelet Volume 12.2 FL (9.6-12.0); NRBC # 0.02 10*3/uL; Neutrophils % 83.3 % (38.7-73.9); Platelet Count 83 T/CUMM (130-400); Red Cell Distribution Width 15.5 % (9.3-17.3); White Blood Count 9.1 T/CUMM (4-12)
[2019-09-03 05:41] LABS: Alanine Aminotransferase 26 U/L (16-61); Albumin 3.3 G/DL (3.4-5.0); Alkaline Phosphatase 51 U/L (45-117); Aspartate Amino Transferase 41 U/L (0-37); Blood Urea Nitrogen 42 MG/DL (7-18); Calcium 8.5 MG/DL (8.5-10.1); Estimated Glom Filtration Rate 10 ML/MIN; Glucose 98 MG/DL (74-106); Osmolality,Calculated 283.8 MOS/KG (273-304); Total Protein 6.4 G/DL (6.4-8.3)
[2019-09-03 05:46] LABS: Hypochromasia 1+; Lymphocytes 7 % (20-55); Nucleated Red Blood Cells 1 (0-5); Ovalocytes Slight; Platelet Estimate Decreased; Segmented Neutrophils 88 % (50-85); Total Cells Counted 100
[2019-09-03] MEDS: hydrALAZINE 25 MG TABLET PO SCH ×2 (09:08→22:02)
[2019-09-03] MEDS: carvediloL 25 MG TABLET PO SCH ×2 (09:08→22:03)
[2019-09-03] MEDS: amLODIPine 5 MG TABLET PO SCH (09:08)
[2019-09-03] MEDS: SACUBITRIL/VALSARTAN 49-51 MG TABLET PO SCH ×2 (09:09→22:03)
[2019-09-03] MEDS: ASPIRIN EC 81 MG TABLET PO SCH (09:09)
[2019-09-03] MEDS: CHLORHEXIDINE 0.12% ORAL RINSE 60 ML BOTTLE SWISH/SPIT SCH ×2 (09:10→22:06)
[2019-09-03] MEDS ORDERED: ZALEPLON 5 MG CAPSULE PO PRN (11:40)
[2019-09-03] MEDS ORDERED: MAGNESIUM HYDROXIDE SUSP 30 ML UDCUP PO PRN (11:40)
[2019-09-03] MEDS ORDERED: MAGNESIUM SULF RIDER 4 GM in PREMIX 1 EACH IV PRN (11:40)
[2019-09-03] MEDS ORDERED: GLUCAGON 1 MG VIAL IM PRN ×2 (11:40)
[2019-09-03] MEDS ORDERED: MAGNESIUM SULF RIDER 2 GM in PREMIX 1 EACH IV PRN (11:40)
[2019-09-03] MEDS ORDERED: DEXTROSE 10% 250 ML BAG IV PRN (11:40)
[2019-09-03] MEDS ORDERED: ONDANSETRON 4 MG/2 ML VIAL IV PRN (11:40)
[2019-09-03] MEDS ORDERED: SODIUM CHLOR 0.45% KCL 20 MEQ 20 MEQ/1,000 ML BAG IV SCH (11:40)
[2019-09-03] MEDS ORDERED: DEXTROSE 50% 25 GM/50 ML VIAL IV PRN (11:40)
[2019-09-03] MEDS ORDERED: ALUMINUM/MAGNES/SIMETH MAX STR 30 ML UDCUP PO PRN (11:40)
[2019-09-03] MEDS ORDERED: INSULIN REGULAR 100 UNIT/ML ONE (11:43)
[2019-09-03] MEDS: SODIUM CHLORIDE 0.45% 1,000 ML IV SCH (12:05)
[2019-09-03] MEDS ORDERED: INSULIN REGULAR 100 UNIT/ML SUBCUT SCH (21:00)
[2019-09-03] MEDS: ROSUVASTATIN 20 MG TABLET PO SCH (22:03)
[2019-09-03] MEDS: INSULIN GLARGINE 100 UNIT/ML SUBCUT SCH (22:22)
[2019-09-04 05:35] LABS: Basophils % 0.1 % (0.0-0.8); Hematocrit 23.8 VOL% (42.0-52.0); Immature Granulocytes % 0.8 %; Immature Granulocytes Absolute 0.06 #; Lymphocytes # 0.6 10*3/uL (1.4-4.0); Lymphocytes % 7.5 % (21.2-54.2); Mean Corpuscular HGB Conc 33.6 GM/DL (32-36); Mean Corpuscular Volume 89.1 FL (87-102); Mean Platelet Volume 11.8 FL (9.6-12.0); Monocytes % 9.4 % (1.7-12.7); Neutrophils % 82.2 % (38.7-73.9); Red Blood Count 2.67 MC/CUMM (3.8-5.5); Red Cell Distribution Width 15.8 % (9.3-17.3); White Blood Count 7.4 T/CUMM (4-12)
[2019-09-04 05:39] LABS: Platelet Count 84 T/CUMM (130-400)
[2019-09-04 06:00] LABS: Alanine Aminotransferase 23 U/L (16-61); Albumin 3.1 G/DL (3.4-5.0); Alkaline Phosphatase 49 U/L (45-117); Aspartate Amino Transferase 28 U/L (0-37); Bilirubin,Indirect 0.6 MG/DL (0.0-1.0); Blood Urea Nitrogen 60 MG/DL (7-18); Calcium 8.5 MG/DL (8.5-10.1); Estimated Glom Filtration Rate 7 ML/MIN; Glucose 124 MG/DL (74-106); Osmolality,Calculated 287.1 MOS/KG (273-304); Total Protein 6.3 G/DL (6.4-8.3)
[2019-09-04 06:07] LABS: Platelet Estimate Decreased
[2019-09-04 06:08] LABS: Anisocytosis 2+
[2019-09-04] MEDS: INSULIN REGULAR 100 UNIT/ML SUBCUT SCH ×4 (08:05→21:15)
[2019-09-04] MEDS: DOCUSATE SODIUM 100 MG CAPSULE PO SCH (08:44)
[2019-09-04] MEDS: hydrALAZINE 25 MG TABLET PO SCH ×2 (08:44→21:14)
[2019-09-04] MEDS: SACUBITRIL/VALSARTAN 49-51 MG TABLET PO SCH ×2 (08:44→21:14)
[2019-09-04] MEDS: ASPIRIN EC 81 MG TABLET PO SCH (08:44)
[2019-09-04] MEDS: carvediloL 25 MG TABLET PO SCH ×2 (08:44→21:14)
[2019-09-04] MEDS: amLODIPine 5 MG TABLET PO SCH (08:45)
[2019-09-04] MEDS: PANTOPRAZOLE 40 MG TABLET PO SCH (08:45)
[2019-09-04] MEDS: FERROUS SULFATE 325 MG TABLET PO SCH (08:45)
[2019-09-04] MEDS: POLYETHYLENE GLYCOL POWDER 17 GM PACK PO SCH (08:45)
[2019-09-04] MEDS: CHLORHEXIDINE 0.12% ORAL RINSE 60 ML BOTTLE SWISH/SPIT SCH ×2 (08:45→21:15)
[2019-09-04] MEDS: ALBUTEROL/IPRATROPIUM 3 ML NEB RESP TX SCH ×2 (17:10→20:04)
[2019-09-04] MEDS: INSULIN GLARGINE 100 UNIT/ML SUBCUT SCH (21:14)
[2019-09-04] MEDS: ROSUVASTATIN 20 MG TABLET PO SCH (21:15)
[2019-09-05] MEDS: ALBUTEROL/IPRATROPIUM 3 ML NEB RESP TX SCH ×4 (01:50→20:24)
[2019-09-05 05:20] LABS: Eosinophils % 0.5 % (0.00-10.9); Hematocrit 26.9 VOL% (42.0-52.0); Hemoglobin 8.7 GM/DL (14.0-18.0); Immature Granulocytes % 0.7 %; Immature Granulocytes Absolute 0.05 #; Lymphocytes # 1.1 10*3/uL (1.4-4.0); Lymphocytes % 14.9 % (21.2-54.2); Mean Corpuscular HGB Conc 32.3 GM/DL (32-36); Mean Corpuscular Volume 91.5 FL (87-102); Mean Platelet Volume 11.4 FL (9.6-12.0); Monocytes % 12.5 % (1.7-12.7); Neutrophils % 71.4 % (38.7-73.9); Platelet Count 103 T/CUMM (130-400); Red Blood Count 2.94 MC/CUMM (3.8-5.5); Red Cell Distribution Width 15.6 % (9.3-17.3); White Blood Count 7.5 T/CUMM (4-12)
[2019-09-05 05:41] LABS: Alanine Aminotransferase 19 U/L (16-61); Albumin 2.9 G/DL (3.4-5.0); Alkaline Phosphatase 49 U/L (45-117); Aspartate Amino Transferase 21 U/L (0-37); Bilirubin,Indirect 0.6 MG/DL (0.0-1.0); Blood Urea Nitrogen 38 MG/DL (7-18); Calcium 8.4 MG/DL (8.5-10.1); Estimated Glom Filtration Rate 10 ML/MIN; Glucose 113 MG/DL (74-106)
[2019-09-05] MEDS: POTASSIUM CHLORIDE 20 MEQ TABLET PO PRN ×2 (06:04→16:42)
[2019-09-05] MEDS: ACETAMINOPHEN 325 MG TABLET PO PRN (07:45)
[2019-09-05] MEDS: amLODIPine 5 MG TABLET PO SCH (08:46)
[2019-09-05] MEDS: hydrALAZINE 25 MG TABLET PO SCH ×2 (08:46→21:08)
[2019-09-05] MEDS: PANTOPRAZOLE 40 MG TABLET PO SCH (08:46)
[2019-09-05] MEDS: SACUBITRIL/VALSARTAN 49-51 MG TABLET PO SCH ×2 (08:46→21:07)
[2019-09-05] MEDS: DOCUSATE SODIUM 100 MG CAPSULE PO SCH (08:46)
[2019-09-05] MEDS: FERROUS SULFATE 325 MG TABLET PO SCH (08:47)
[2019-09-05] MEDS: ASPIRIN EC 81 MG TABLET PO SCH (08:47)
[2019-09-05] MEDS: carvediloL 25 MG TABLET PO SCH ×2 (08:47→21:08)
[2019-09-05] MEDS: INSULIN REGULAR 100 UNIT/ML SUBCUT SCH ×4 (08:48→21:09)
[2019-09-05] MEDS: LACTULOSE 20 GM/30 ML UDCUP PO SCH ×2 (08:56→09:42)
[2019-09-05] MEDS: CHLORHEXIDINE 0.12% ORAL RINSE 60 ML BOTTLE SWISH/SPIT SCH ×2 (08:58→21:08)
[2019-09-05] MEDS: POLYETHYLENE GLYCOL POWDER 17 GM PACK PO SCH (08:59)
[2019-09-05] MEDS ORDERED: KETOROLAC 30 MG/1 ML VIAL IV ONE (09:00)
[2019-09-05] MEDS ORDERED: LACTULOSE 20 GM/30 ML UDCUP PO PRN (14:00)
[2019-09-05] MEDS: ROSUVASTATIN 20 MG TABLET PO SCH (21:07)
[2019-09-05] MEDS: INSULIN GLARGINE 100 UNIT/ML SUBCUT SCH (21:08)
[2019-09-06 03:55] LABS: Eosinophils # 0.1 10*3/uL (0.0-0.87); Eosinophils % 1.9 % (0.00-10.9); Hematocrit 28.1 VOL% (42.0-52.0); Immature Granulocytes % 0.6 %; Immature Granulocytes Absolute 0.04 #; Lymphocytes % 14.3 % (21.2-54.2); Mean Corpuscular Volume 91.5 FL (87-102); Mean Platelet Volume 10.8 FL (9.6-12.0); Monocytes % 12.8 % (1.7-12.7); Neutrophils % 70.4 % (38.7-73.9); Platelet Count 107 T/CUMM (130-400); Red Blood Count 3.07 MC/CUMM (3.8-5.5); Red Cell Distribution Width 15.9 % (9.3-17.3)
[2019-09-06] MEDS: ALBUTEROL/IPRATROPIUM 3 ML NEB RESP TX SCH ×4 (04:19→20:13)
[2019-09-06 04:24] LABS: Blood Urea Nitrogen 54 MG/DL (7-18); Calcium 8.2 MG/DL (8.5-10.1); Estimated Glom Filtration Rate 7 ML/MIN; Glucose 141 MG/DL (74-106); Osmolality,Calculated 289.8 MOS/KG (273-304)
[2019-09-06] MEDS: INSULIN REGULAR 100 UNIT/ML SUBCUT SCH ×4 (08:35→21:26)
[2019-09-06] MEDS: PANTOPRAZOLE 40 MG TABLET PO SCH (09:35)
[2019-09-06] MEDS: ASPIRIN EC 81 MG TABLET PO SCH (09:35)
[2019-09-06] MEDS: SACUBITRIL/VALSARTAN 49-51 MG TABLET PO SCH ×2 (09:35→21:25)
[2019-09-06] MEDS: hydrALAZINE 25 MG TABLET PO SCH ×2 (09:36→21:25)
[2019-09-06] MEDS: CHLORHEXIDINE 0.12% ORAL RINSE 60 ML BOTTLE SWISH/SPIT SCH ×2 (09:36→21:25)
[2019-09-06] MEDS: POLYETHYLENE GLYCOL POWDER 17 GM PACK PO SCH (09:36)
[2019-09-06] MEDS: FERROUS SULFATE 325 MG TABLET PO SCH (09:36)
[2019-09-06] MEDS: amLODIPine 5 MG TABLET PO SCH (09:36)
[2019-09-06] MEDS: DOCUSATE SODIUM 100 MG CAPSULE PO SCH (09:36)
[2019-09-06] MEDS: carvediloL 25 MG TABLET PO SCH ×2 (09:36→21:25)
[2019-09-06] MEDS: ROSUVASTATIN 20 MG TABLET PO SCH (21:25)
[2019-09-06] MEDS: INSULIN GLARGINE 100 UNIT/ML SUBCUT SCH (21:26)
[2019-09-07] MEDS: ALBUTEROL/IPRATROPIUM 3 ML NEB RESP TX SCH ×4 (02:02→19:40)
[2019-09-07 05:52] LABS: Basophils % 0.1 % (0.0-0.8); Eosinophils # 0.4 10*3/uL (0.0-0.87); Hematocrit 27.6 VOL% (42.0-52.0); Hemoglobin 9.1 GM/DL (14.0-18.0); Immature Granulocytes % 0.7 %; Immature Granulocytes Absolute 0.07 #; Lymphocytes % 10.6 % (21.2-54.2); Mean Platelet Volume 11.4 FL (9.6-12.0); Monocytes % 11.6 % (1.7-12.7); Platelet Count 119 T/CUMM (130-400); Red Cell Distribution Width 15.8 % (9.3-17.3); White Blood Count 9.4 T/CUMM (4-12)
[2019-09-07 06:18] LABS: Alanine Aminotransferase 17 U/L (16-61); Albumin 2.8 G/DL (3.4-5.0); Alkaline Phosphatase 77 U/L (45-117); Aspartate Amino Transferase 25 U/L (0-37); Bilirubin,Indirect 0.5 MG/DL (0.0-1.0); Blood Urea Nitrogen 76 MG/DL (7-18); Calcium 8.4 MG/DL (8.5-10.1); Estimated Glom Filtration Rate 6 ML/MIN; Glucose 120 MG/DL (74-106)
[2019-09-07] MEDS: ACETAMINOPHEN 325 MG TABLET PO PRN (07:28)
[2019-09-07] MEDS ORDERED: NITROGLYCERIN SL 0.4 MG TABLET SL PRN (13:18)
[2019-09-07] MEDS ORDERED: MORPHINE 4 MG/1 ML VIAL IV ONE (13:54)
[2019-09-07] MEDS: FERROUS SULFATE 325 MG TABLET PO SCH (15:10)
[2019-09-07] MEDS: DOCUSATE SODIUM 100 MG CAPSULE PO SCH (15:10)
[2019-09-07] MEDS: amLODIPine 5 MG TABLET PO SCH (15:10)
[2019-09-07] MEDS: SACUBITRIL/VALSARTAN 49-51 MG TABLET PO SCH ×2 (15:11→21:56)
[2019-09-07] MEDS: CHLORHEXIDINE 0.12% ORAL RINSE 60 ML BOTTLE SWISH/SPIT SCH ×2 (15:11→21:57)
[2019-09-07] MEDS: hydrALAZINE 25 MG TABLET PO SCH ×2 (15:11→21:56)
[2019-09-07] MEDS: PANTOPRAZOLE 40 MG TABLET PO SCH (15:11)
[2019-09-07] MEDS: carvediloL 25 MG TABLET PO SCH ×2 (15:11→21:56)
[2019-09-07] MEDS: POLYETHYLENE GLYCOL POWDER 17 GM PACK PO SCH (15:11)
[2019-09-07] MEDS: ASPIRIN EC 81 MG TABLET PO SCH (15:11)
[2019-09-07] MEDS: INSULIN REGULAR 100 UNIT/ML SUBCUT SCH ×3 (17:21→21:57)
[2019-09-07] MEDS: MORPHINE 4 MG/1 ML VIAL IV PRN (21:53)
[2019-09-07] MEDS: INSULIN GLARGINE 100 UNIT/ML SUBCUT SCH (21:55)
[2019-09-07] MEDS: ROSUVASTATIN 20 MG TABLET PO SCH (21:56)
[2019-09-08] MEDS: ALBUTEROL/IPRATROPIUM 3 ML NEB RESP TX SCH ×4 (00:52→19:39)
[2019-09-08] MEDS: MORPHINE 4 MG/1 ML VIAL IV PRN ×3 (01:20→21:28)
[2019-09-08 05:24] LABS: Basophils % 0.1 % (0.0-0.8); Eosinophils # 0.3 10*3/uL (0.0-0.87); Eosinophils % 3.5 % (0.00-10.9); Hematocrit 26.3 VOL% (42.0-52.0); Hemoglobin 8.7 GM/DL (14.0-18.0); Immature Granulocytes % 0.4 %; Immature Granulocytes Absolute 0.03 #; Lymphocytes # 1.1 10*3/uL (1.4-4.0); Lymphocytes % 13.9 % (21.2-54.2); Mean Corpuscular HGB Conc 33.1 GM/DL (32-36); Mean Corpuscular Volume 90.7 FL (87-102); Mean Platelet Volume 11.8 FL (9.6-12.0); Monocytes % 14.3 % (1.7-12.7); Neutrophils % 67.8 % (38.7-73.9); Platelet Count 116 T/CUMM (130-400); Red Cell Distribution Width 15.4 % (9.3-17.3); White Blood Count 7.9 T/CUMM (4-12)
[2019-09-08 05:40] LABS: Alanine Aminotransferase 14 U/L (16-61); Albumin 2.8 G/DL (3.4-5.0); Alkaline Phosphatase 55 U/L (45-117); Aspartate Amino Transferase 24 U/L (0-37); Bilirubin,Indirect 0.6 MG/DL (0.0-1.0); Blood Urea Nitrogen 55 MG/DL (7-18); Calcium 8.4 MG/DL (8.5-10.1); Estimated Glom Filtration Rate 7 ML/MIN; Glucose 115 MG/DL (74-106); Osmolality,Calculated 285.1 MOS/KG (273-304); Total Protein 5.9 G/DL (6.4-8.3)
[2019-09-08] MEDS ORDERED: traMADol 50 MG TABLET PO PRN (07:37)
[2019-09-08] MEDS: INSULIN REGULAR 100 UNIT/ML SUBCUT SCH ×4 (08:53→21:32)
[2019-09-08] MEDS: POLYETHYLENE GLYCOL POWDER 17 GM PACK PO SCH (09:09)
[2019-09-08] MEDS: amLODIPine 5 MG TABLET PO SCH (09:09)
[2019-09-08] MEDS: hydrALAZINE 25 MG TABLET PO SCH ×2 (09:10→21:31)
[2019-09-08] MEDS: FERROUS SULFATE 325 MG TABLET PO SCH (09:10)
[2019-09-08] MEDS: DOCUSATE SODIUM 100 MG CAPSULE PO SCH (09:10)
[2019-09-08] MEDS: SACUBITRIL/VALSARTAN 49-51 MG TABLET PO SCH ×2 (09:10→21:31)
[2019-09-08] MEDS: carvediloL 25 MG TABLET PO SCH ×2 (09:10→21:31)
[2019-09-08] MEDS: PANTOPRAZOLE 40 MG TABLET PO SCH (09:10)
[2019-09-08] MEDS: ASPIRIN EC 81 MG TABLET PO SCH (09:10)
[2019-09-08] MEDS: CHLORHEXIDINE 0.12% ORAL RINSE 60 ML BOTTLE SWISH/SPIT SCH ×2 (09:12→21:33)
[2019-09-08] MEDS ORDERED: GABAPENTIN 100 MG CAPSULE PO PRN (10:34)
[2019-09-08] MEDS ORDERED: TUBERCULIN SKIN TEST 0.1 ML SYRINGE INTRADERM ONE (11:52)
[2019-09-08] MEDS: INSULIN GLARGINE 100 UNIT/ML SUBCUT SCH (21:31)
[2019-09-08] MEDS: ROSUVASTATIN 20 MG TABLET PO SCH (21:31)
[2019-09-09] MEDS: ALBUTEROL/IPRATROPIUM 3 ML NEB RESP TX SCH ×2 (00:31→07:15)
[2019-09-09] MEDS: MORPHINE 4 MG/1 ML VIAL IV PRN ×2 (00:56→04:41)
[2019-09-09 03:16] LABS: Basophils % 0.1 % (0.0-0.8); Eosinophils # 0.3 10*3/uL (0.0-0.87); Eosinophils % 3.4 % (0.00-10.9); Hematocrit 25.3 VOL% (42.0-52.0); Hemoglobin 8.4 GM/DL (14.0-18.0); Immature Granulocytes % 0.4 %; Immature Granulocytes Absolute 0.03 #; Lymphocytes % 13.9 % (21.2-54.2); Mean Corpuscular HGB Conc 33.2 GM/DL (32-36); Mean Corpuscular Volume 90.4 FL (87-102); Mean Platelet Volume 11.1 FL (9.6-12.0); Monocytes % 15.1 % (1.7-12.7); Neutrophils % 67.1 % (38.7-73.9); Platelet Count 109 T/CUMM (130-400); Red Cell Distribution Width 15.2 % (9.3-17.3); White Blood Count 7.3 T/CUMM (4-12)
[2019-09-09 03:22] LABS: Calcium 8.6 MG/DL (8.5-10.1); Osmolality,Calculated 290.1 MOS/KG (273-304)
[2019-09-09] MEDS: INSULIN REGULAR 100 UNIT/ML SUBCUT SCH ×3 (08:29→16:49)
[2019-09-09] MEDS: CHLORHEXIDINE 0.12% ORAL RINSE 60 ML BOTTLE SWISH/SPIT SCH (08:30)
[2019-09-09 12:48] VITALS: BP 125/70
[2019-09-09] MEDS: FERROUS SULFATE 325 MG TABLET PO SCH (14:09)
[2019-09-09] MEDS: PANTOPRAZOLE 40 MG TABLET PO SCH (14:09)
[2019-09-09] MEDS: carvediloL 25 MG TABLET PO SCH (14:09)
[2019-09-09] MEDS: SACUBITRIL/VALSARTAN 49-51 MG TABLET PO SCH (14:10)
[2019-09-09] MEDS: ASPIRIN EC 81 MG TABLET PO SCH (14:10)
[2019-09-09] MEDS: amLODIPine 5 MG TABLET PO SCH (14:10)
[2019-09-09] MEDS: hydrALAZINE 25 MG TABLET PO SCH (14:10)
[2019-09-09] MEDS: DOCUSATE SODIUM 100 MG CAPSULE PO SCH (14:10)
[2019-09-09] MEDS: POLYETHYLENE GLYCOL POWDER 17 GM PACK PO SCH (14:11)
== END 2019-09-09 18:54 | disposition home health service (06) | DRG 233 ==
LOC: N.CL 13:02 → N.CC 13:02 → N.CL 13:03 → N.TELES 14:53 → N.CC 17:08 → N.TELEN 08-28 13:36 → N.CVR 08-31 11:15 → N.ICU 09-01 11:22 → N.TELES 09-03 12:56
PROVIDERS: ADMIT Internal Medicine Interventional Cardiology

== ENCOUNTER 2019-09-11 12:41 | Observation (INO) ==
[2019-09-11] MEDS ORDERED: ASPIRIN 325 MG TABLET PO STA (13:18)
[2019-09-11] MEDS ORDERED: NITROGLYCERIN SL 0.4 MG TABLET SL PRN ×2 (13:18→16:04)
[2019-09-11 14:41] LABS: Calcium 9.3 MG/DL (8.5-10.1); Osmolality,Calculated 282.8 MOS/KG (273-304)
[2019-09-11 15:00] LABS: Basophils % 0.2 % (0.0-0.8); Eosinophils # 0.3 10*3/uL (0.0-0.87); Eosinophils % 3.4 % (0.00-10.9); Hematocrit 28.7 VOL% (42.0-52.0); Hemoglobin 9.5 GM/DL (14.0-18.0); Immature Granulocytes % 0.4 %; Immature Granulocytes Absolute 0.04 #; Lymphocytes # 1.4 10*3/uL (1.4-4.0); Lymphocytes % 14.5 % (21.2-54.2); Mean Corpuscular HGB Conc 33.1 GM/DL (32-36); Mean Platelet Volume 11.3 FL (9.6-12.0); Monocytes % 11.3 % (1.7-12.7); Neutrophils % 70.2 % (38.7-73.9); Platelet Count 93 T/CUMM (130-400); Red Blood Count 3.26 MC/CUMM (3.8-5.5); White Blood Count 9.5 T/CUMM (4-12)
[2019-09-11] MEDS ORDERED: ACETAMINOPHEN 325 MG TABLET PO PRN (16:04)
[2019-09-11] MEDS ORDERED: DEXTROSE 50% 25 GM/50 ML VIAL IV PRN (16:04)
[2019-09-11] MEDS ORDERED: ONDANSETRON 4 MG/2 ML VIAL IV PRN (16:04)
[2019-09-11] MEDS ORDERED: DEXTROSE 10% 250 ML BAG IV PRN (16:04)
[2019-09-11] MEDS ORDERED: GLUCAGON 1 MG VIAL IM PRN ×2 (16:04)
[2019-09-11] MEDS ORDERED: MORPHINE 4 MG/1 ML VIAL IV PRN (16:04)
[2019-09-11 16:13] LABS: Platelet Estimate Decreased
[2019-09-11] MEDS ORDERED: traMADol 50 MG TABLET PO PRN (16:14)
[2019-09-11] MEDS ORDERED: GABAPENTIN 300 MG CAPSULE PO PRN (16:14)
[2019-09-11] MEDS ORDERED: ENOXAPARIN 30 MG/0.3 ML SYRINGE SUBCUT SCH (21:00)
[2019-09-11] MEDS: carvediloL 25 MG TABLET PO SCH (21:31)
[2019-09-11] MEDS: hydrALAZINE 25 MG TABLET PO SCH (21:32)
[2019-09-11] MEDS: SACUBITRIL/VALSARTAN 49-51 MG TABLET PO SCH (21:34)
[2019-09-11] MEDS: MEGESTROL 40 MG TABLET PO SCH (21:35)
[2019-09-11] MEDS: INSULIN LISPRO 100 UNIT/ML SUBCUT SCH ×2 (21:42→23:11)
[2019-09-11 22:53] LABS: Troponin I 0.263 NG/ML (0.00-0.045)
[2019-09-12 05:09] LABS: PT Patient Result 11.2 SECS (9.8-11.9); Partial Thromboplastin Time 32.5 SECS (23.9-33.8)
[2019-09-12 05:47] LABS: Bilirubin,Total 0.6 MG/DL (0.2-1.0); Calcium 8.7 MG/DL (8.5-10.1); Osmolality,Calculated 283.8 MOS/KG (273-304); Risk Ratio 3.8; Thyroid Stimulating Hormone 1.28 uIU/ml (0.358-3.74); Total Protein 6.6 G/DL (6.4-8.3); VLDL CHOLESTEROL 24.2 MG/DL
[2019-09-12 06:15] LABS: Basophils % 0.2 % (0.0-0.8); Eosinophils # 0.3 10*3/uL (0.0-0.87); Eosinophils % 3.6 % (0.00-10.9); Hematocrit 27.1 VOL% (42.0-52.0); Hemoglobin 9.1 GM/DL (14.0-18.0); Immature Granulocytes % 0.2 %; Immature Granulocytes Absolute 0.02 #; Lymphocytes # 1.4 10*3/uL (1.4-4.0); Lymphocytes % 15.6 % (21.2-54.2); Mean Corpuscular HGB Conc 33.6 GM/DL (32-36); Mean Corpuscular Volume 86.6 FL (87-102); Monocytes % 10.9 % (1.7-12.7); Neutrophils % 69.5 % (38.7-73.9); Platelet Count 115 T/CUMM (130-400); Red Blood Count 3.13 MC/CUMM (3.8-5.5); White Blood Count 9.1 T/CUMM (4-12)
[2019-09-12 08:40] VITALS: BP 136/64
[2019-09-12] MEDS ORDERED: PANTOPRAZOLE 40 MG TABLET PO SCH (09:00)
[2019-09-12] MEDS ORDERED: ROSUVASTATIN 10 MG TABLET PO SCH (09:00)
[2019-09-12] MEDS ORDERED: amLODIPine 5 MG TABLET PO SCH (09:00)
[2019-09-12] MEDS ORDERED: ASPIRIN EC 81 MG TABLET PO SCH (09:00)
[2019-09-12] MEDS: INSULIN LISPRO 100 UNIT/ML SUBCUT SCH (09:30)
[2019-09-12] MEDS: hydrALAZINE 25 MG TABLET PO SCH (09:31)
[2019-09-12] MEDS: MEGESTROL 40 MG TABLET PO SCH (09:31)
[2019-09-12] MEDS: carvediloL 25 MG TABLET PO SCH (09:31)
[2019-09-12] MEDS: SACUBITRIL/VALSARTAN 49-51 MG TABLET PO SCH (09:31)
[2019-09-14] MEDS ORDERED: EPOETIN ALFA-EPBX 2,000 UNIT/ML VIAL SUBCUT SCH (09:00)
== END 2019-09-12 12:23 | disposition home or self-care (01) ==
LOC: EDBD → EDUNIT# → N.ED 12:41 → N.EDINP 12:41 → N.TELES 17:31
PROVIDERS: ADMIT Family Medicine; ATTEND Family Medicine

== ENCOUNTER 2020-03-18 12:52 | Observation (INO) ==
[2020-03-18] MEDS ORDERED: DEXTROSE 50% 25 GM/50 ML SYRINGE IV PRN (16:50)
[2020-03-18] MEDS ORDERED: GLUCAGON 1 MG VIAL IM PRN ×2 (16:50)
[2020-03-18] MEDS ORDERED: DEXTROSE 50% 25 GM/50 ML VIAL IV PRN (16:50)
[2020-03-18] MEDS ORDERED: ONDANSETRON 4 MG/2 ML VIAL IV PRN (16:50)
[2020-03-18 17:14] LABS: Basophils % 0.4 % (0.0-0.8); Eosinophils # 0.1 10*3/uL (0.0-0.87); Eosinophils % 2.1 % (0.00-10.9); Hematocrit 34.6 VOL% (42.0-52.0); Hemoglobin 11.2 GM/DL (14.0-18.0); Immature Granulocytes % 0.2 %; Immature Granulocytes Absolute 0.01 #; Lymphocytes # 2.1 10*3/uL (1.4-4.0); Lymphocytes % 37.2 % (21.2-54.2); Mean Corpuscular HGB Conc 32.4 GM/DL (32-36); Mean Corpuscular Volume 90.6 FL (87-102); Mean Platelet Volume 11.4 FL (9.6-12.0); Monocytes % 8.6 % (1.7-12.7); Neutrophils % 51.5 % (38.7-73.9); Platelet Count 84 T/CUMM (130-400); Red Blood Count 3.82 MC/CUMM (3.8-5.5); Red Cell Distribution Width 16.4 % (9.3-17.3); White Blood Count 5.7 T/CUMM (4-12)
[2020-03-18 17:23] LABS: PT Patient Result 10.8 SECS (9.8-11.9); Partial Thromboplastin Time 26.5 SECS (23.9-33.8)
[2020-03-18 17:36] LABS: Calcium 9.6 MG/DL (8.5-10.1); Osmolality,Calculated 291.3 MOS/KG (273-304)
[2020-03-18] MEDS: INSULIN LISPRO 100 UNIT/ML SUBCUT SCH (21:22)
[2020-03-19 05:44] LABS: Basophils % 0.6 % (0.0-0.8); Eosinophils # 0.1 10*3/uL (0.0-0.87); Eosinophils % 2.1 % (0.00-10.9); Hematocrit 35.7 VOL% (42.0-52.0); Hemoglobin 11.7 GM/DL (14.0-18.0); Immature Granulocytes % 0.2 %; Immature Granulocytes Absolute 0.01 #; Lymphocytes % 37.5 % (21.2-54.2); Mean Corpuscular HGB Conc 32.8 GM/DL (32-36); Mean Corpuscular Volume 88.6 FL (87-102); Mean Platelet Volume 11.3 FL (9.6-12.0); Monocytes % 9.6 % (1.7-12.7); Platelet Count 69 T/CUMM (130-400); Red Blood Count 4.03 MC/CUMM (3.8-5.5); Red Cell Distribution Width 15.9 % (9.3-17.3); White Blood Count 5.2 T/CUMM (4-12)
[2020-03-19 05:57] LABS: Calcium 9.3 MG/DL (8.5-10.1); Osmolality,Calculated 290.4 MOS/KG (273-304)
[2020-03-19 06:27] LABS: Hypochromasia 1+; Microcytosis 1+; Ovalocytes Slight; Platelet Estimate Decreased
[2020-03-19] MEDS ORDERED: HEPARIN 5,000 UNIT/1 ML VIAL ONE (07:59)
[2020-03-19] MEDS ORDERED: BUPIVACAINE MPF 0.25% 30 ML VIAL ONE (07:59)
[2020-03-19] MEDS ORDERED: LIDOCAINE 1% 20 ML VIAL ONE (07:59)
[2020-03-19] MEDS ORDERED: VANCOMYCIN 1,000 MG VIAL ONE (08:31)
[2020-03-19] MEDS ORDERED: propofoL 200 MG/20 ML VIAL IV ONE (10:07)
[2020-03-19] MEDS ORDERED: LIDOCAINE 2% 5 ML VIAL ONE (10:07)
[2020-03-19] MEDS ORDERED: PHENYLEPHRINE 10 MG/1 ML VIAL IV ONE (10:08)
[2020-03-19] MEDS ORDERED: SODIUM CHLORIDE 0.9% 500 ML IV ONE (10:08)
[2020-03-19] MEDS ORDERED: SODIUM CHLORIDE 0.9% 100 ML IV ONE (10:08)
[2020-03-19] MEDS ORDERED: fentaNYL 100 MCG/2 ML VIAL ONE (10:08)
[2020-03-19] MEDS ORDERED: NITROGLYCERIN SL 0.4 MG TABLET SL PRN (10:38)
[2020-03-19] MEDS: INSULIN LISPRO 100 UNIT/ML SUBCUT SCH ×4 (12:36→20:23)
[2020-03-19] MEDS: levETIRAcetam 500 MG TABLET PO SCH ×2 (12:39→23:26)
[2020-03-19] MEDS: SACUBITRIL/VALSARTAN 49-51 MG TABLET PO SCH ×2 (12:39→23:26)
[2020-03-19] MEDS: PANTOPRAZOLE 40 MG TABLET PO SCH (12:40)
[2020-03-19] MEDS: ASPIRIN EC 81 MG TABLET PO SCH (12:40)
[2020-03-19] MEDS: HEPARIN 5,000 UNIT/1 ML VIAL SUBCUT SCH ×2 (17:19→23:27)
[2020-03-19] MEDS: carvediloL 25 MG TABLET PO SCH ×2 (17:19→23:27)
[2020-03-19] MEDS: hydrALAZINE 25 MG TABLET PO SCH ×2 (17:19→23:27)
[2020-03-20 06:32] LABS: Basophils % 0.4 % (0.0-0.8); Eosinophils # 0.1 10*3/uL (0.0-0.87); Hemoglobin 11.2 GM/DL (14.0-18.0); Immature Granulocytes % 0.2 %; Immature Granulocytes Absolute 0.01 #; Lymphocytes # 1.6 10*3/uL (1.4-4.0); Lymphocytes % 30.7 % (21.2-54.2); Mean Corpuscular HGB Conc 32.9 GM/DL (32-36); Mean Corpuscular Volume 87.2 FL (87-102); Monocytes % 10.5 % (1.7-12.7); Neutrophils % 56.2 % (38.7-73.9); Platelet Count 80 T/CUMM (130-400); Red Cell Distribution Width 15.7 % (9.3-17.3); White Blood Count 5.1 T/CUMM (4-12)
[2020-03-20 06:45] LABS: Calcium 9.6 MG/DL (8.5-10.1); Osmolality,Calculated 273.4 MOS/KG (273-304)
[2020-03-20 06:59] LABS: Hypochromasia 1+; Microcytosis 1+; Ovalocytes Slight; Platelet Estimate Decreased
[2020-03-20] MEDS: HEPARIN 5,000 UNIT/1 ML VIAL SUBCUT SCH (07:29)
[2020-03-20] MEDS ORDERED: amLODIPine 10 MG TABLET PO SCH (09:00)
[2020-03-20] MEDS ORDERED: ROSUVASTATIN 10 MG TABLET PO SCH (09:00)
[2020-03-20] MEDS: ASPIRIN EC 81 MG TABLET PO SCH (09:12)
[2020-03-20] MEDS: SACUBITRIL/VALSARTAN 49-51 MG TABLET PO SCH (09:12)
[2020-03-20] MEDS: carvediloL 25 MG TABLET PO SCH (09:12)
[2020-03-20] MEDS: hydrALAZINE 25 MG TABLET PO SCH (09:12)
[2020-03-20] MEDS: levETIRAcetam 500 MG TABLET PO SCH (09:12)
[2020-03-20] MEDS: PANTOPRAZOLE 40 MG TABLET PO SCH (09:12)
[2020-03-20] MEDS: INSULIN LISPRO 100 UNIT/ML SUBCUT SCH ×2 (09:13→13:03)
[2020-03-20 11:55] VITALS: BP 138/84
== END 2020-03-20 14:03 | disposition home health service (06) ==
LOC: N.ED 12:52 → N.EDINP 12:52 → SUATTDRO 16:50 → N.5E 17:23
PROVIDERS: ADMIT Hospitalist; ATTEND Family Medicine

== ENCOUNTER 2020-06-17 09:51 | Inpatient (IN) ==
[2020-06-17] MEDS ORDERED: ONDANSETRON 4 MG/2 ML VIAL IV STA (10:18)
[2020-06-17 10:52] LABS: Basophils % 0.6 % (0.0-0.8); Eosinophils # 0.1 10*3/uL (0.0-0.87); Eosinophils % 1.4 % (0.00-10.9); Hematocrit 25.2 VOL% (42.0-52.0); Hemoglobin 8.4 GM/DL (14.0-18.0); Immature Granulocytes % 0.4 %; Immature Granulocytes Absolute 0.02 #; Lymphocytes # 1.8 10*3/uL (1.4-4.0); Lymphocytes % 35.2 % (21.2-54.2); Mean Corpuscular HGB Conc 33.3 GM/DL (32-36); Mean Corpuscular Volume 91.3 FL (87-102); Mean Platelet Volume 11.2 FL (9.6-12.0); Monocytes % 10.5 % (1.7-12.7); Neutrophils % 51.9 % (38.7-73.9); Platelet Count 102 T/CUMM (130-400); Red Blood Count 2.76 MC/CUMM (3.8-5.5); Red Cell Distribution Width 18.2 % (9.3-17.3); White Blood Count 5.1 T/CUMM (4-12)
[2020-06-17 11:08] LABS: Albumin 3.2 G/DL (3.4-5.0); Bilirubin,Total 0.4 MG/DL (0.2-1.0); Calcium 9.2 MG/DL (8.5-10.1); Osmolality,Calculated 281.5 MOS/KG (273-304); Total Protein 6.8 G/DL (6.4-8.3)
[2020-06-17] MEDS ORDERED: PIPERACILLIN/TAZOBACTAM 2,250 MG in SODIUM CHLORIDE 0.9% 100 ML IV STA (12:05)
[2020-06-17] MEDS ORDERED: propofoL 200 MG/20 ML VIAL IV ONE (12:16)
[2020-06-17] MEDS ORDERED: ROCURONIUM 50 MG/5 ML VIAL IV ONE (12:16)
[2020-06-17] MEDS ORDERED: LIDOCAINE 2% 5 ML VIAL ONE (12:16)
[2020-06-17] MEDS ORDERED: fentaNYL 100 MCG/2 ML VIAL ONE (12:18)
[2020-06-17] MEDS ORDERED: BUPIVACAINE MPF 0.25% 30 ML VIAL ONE (12:23)
[2020-06-17] MEDS ORDERED: TISSUE ADHESIVE 1 EACH APPLICATOR TOP ONE (12:23)
[2020-06-17] MEDS ORDERED: LIDOCAINE 1% 20 ML VIAL ONE (12:23)
[2020-06-17] MEDS ORDERED: GLUCAGON 1 MG VIAL IM PRN (12:44)
[2020-06-17] MEDS ORDERED: ONDANSETRON 4 MG/2 ML VIAL IV PRN ×2 (12:44→14:16)
[2020-06-17] MEDS ORDERED: DEXTROSE 50% 25 GM/50 ML VIAL IV PRN (12:44)
[2020-06-17] MEDS ORDERED: ACETAMINOPHEN 325 MG TABLET PO PRN (12:44)
[2020-06-17] MEDS ORDERED: hydrALAZINE 20 MG/1 ML VIAL IV PRN (12:44)
[2020-06-17] MEDS ORDERED: SEVOFLURANE 1 UNIT/15 MINUTE INH ONE ×4 (13:44→13:52)
[2020-06-17] MEDS ORDERED: PHENYLEPHRINE 1 MG/10 ML SYRINGE IV ONE (13:44)
[2020-06-17] MEDS ORDERED: GLYCOPYRROLATE 0.4 MG/2 ML VIAL ONE (13:44)
[2020-06-17] MEDS ORDERED: SUCCINYLCHOLINE 200 MG/10 ML VIAL ONE (13:44)
[2020-06-17] MEDS ORDERED: ETOMIDATE 40 MG/20 ML VIAL IV ONE (13:44)
[2020-06-17] MEDS ORDERED: ONDANSETRON 4 MG/2 ML VIAL ONE (13:44)
[2020-06-17] MEDS ORDERED: NEOSTIGMINE 10 MG/10 ML VIAL ONE (13:46)
[2020-06-17] MEDS ORDERED: ALBUTEROL/IPRATROPIUM 3 ML NEB RESP TX PRN (14:10)
[2020-06-17] MEDS ORDERED: KETOROLAC 15 MG/1 ML VIAL IV PRN (14:10)
[2020-06-17] MEDS ORDERED: HYDROmorphone 2 MG/1 ML VIAL IV PRN (14:10)
[2020-06-17] MEDS ORDERED: BISACODYL 5 MG TABLET PO PRN (14:10)
[2020-06-17] MEDS ORDERED: MEPERIDINE 25 MG/1 ML VIAL IV PRN (14:16)
[2020-06-17] MEDS ORDERED: diphenhydrAMINE 50 MG/1 ML VIAL IV PRN (14:16)
[2020-06-17] MEDS: INSULIN REGULAR 100 UNIT/ML SUBCUT SCH ×2 (17:15→20:15)
[2020-06-17] MEDS ORDERED: EPOETIN ALFA-EPBX 2,000 UNIT/ML VIAL IV PRN (17:31)
[2020-06-17] MEDS: cefOXitin 2,000 MG in SYRINGE 1 EACH IV SCH (18:11)
[2020-06-17] MEDS: levETIRAcetam 500 MG TABLET PO SCH (20:16)
[2020-06-17] MEDS: hydrALAZINE 25 MG TABLET PO SCH (23:30)
[2020-06-18] MEDS: cefOXitin 2,000 MG in SYRINGE 1 EACH IV SCH ×2 (01:09→06:08)
[2020-06-18 07:13] LABS: Basophils % 0.4 % (0.0-0.8); Eosinophils # 0.1 10*3/uL (0.0-0.87); Eosinophils % 1.2 % (0.00-10.9); Hematocrit 23.9 VOL% (42.0-52.0); Hemoglobin 7.9 GM/DL (14.0-18.0); Immature Granulocytes % 0.4 %; Immature Granulocytes Absolute 0.02 #; Lymphocytes # 1.3 10*3/uL (1.4-4.0); Lymphocytes % 25.4 % (21.2-54.2); Mean Corpuscular HGB Conc 33.1 GM/DL (32-36); Mean Platelet Volume 12.2 FL (9.6-12.0); Monocytes % 8.9 % (1.7-12.7); Neutrophils % 63.7 % (38.7-73.9); Platelet Count 91 T/CUMM (130-400); Red Blood Count 2.57 MC/CUMM (3.8-5.5); Red Cell Distribution Width 18.2 % (9.3-17.3); White Blood Count 5.1 T/CUMM (4-12)
[2020-06-18 07:50] LABS: Calcium 8.8 MG/DL (8.5-10.1); Osmolality,Calculated 283.5 MOS/KG (273-304); Thyroid Stimulating Hormone 1.06 uIU/ml (0.358-3.74)
[2020-06-18 08:45] LABS: Anisocytosis 1+; Platelet Estimate Decreased; Poikilocytosis Slight; Tear Drop Cells Few
[2020-06-18 08:46] LABS: Hypochromasia Slight
[2020-06-18] MEDS ORDERED: SODIUM CHLORIDE 0.9% 1,000 ML IV PRN ×2 (08:59→11:13)
[2020-06-18] MEDS ORDERED: PANTOPRAZOLE 40 MG TABLET PO SCH (09:00)
[2020-06-18] MEDS ORDERED: amLODIPine 10 MG TABLET PO SCH (09:00)
[2020-06-18 09:46] VITALS: BP 149/58
[2020-06-18] MEDS: INSULIN REGULAR 100 UNIT/ML SUBCUT SCH ×3 (09:52→17:55)
[2020-06-18] MEDS: levETIRAcetam 500 MG TABLET PO SCH (09:53)
[2020-06-18] MEDS: hydrALAZINE 25 MG TABLET PO SCH (09:53)
== END 2020-06-18 18:38 | disposition home health service (06) | DRG 341 ==
LOC: EDUNIT# → EDBD → N.ED 09:51 → N.EDINP 12:44 → N.3E 12:55
PROVIDERS: ADMIT Internal Medicine; ATTEND Internal Medicine

== ENCOUNTER 2021-05-04 18:31 | Inpatient (IN) ==
[2021-05-04] MEDS ORDERED: levETIRAcetam 500 MG/5 ML VIAL IV ONE (19:22)
[2021-05-04 19:49] LABS: Basophils % 0.2 % (0.0-0.8); Eosinophils # 0.1 10*3/uL (0.0-0.87); Eosinophils % 1.4 % (0.00-10.9); Hematocrit 36.5 VOL% (42.0-52.0); Hemoglobin 11.9 GM/DL (14.0-18.0); Immature Granulocytes % 0.5 %; Immature Granulocytes Absolute 0.02 #; Lymphocytes # 1.1 10*3/uL (1.4-4.0); Lymphocytes % 25.5 % (21.2-54.2); Mean Corpuscular HGB Conc 32.6 GM/DL (32-36); Mean Corpuscular Volume 95.1 FL (87-102); Mean Platelet Volume 12.5 FL (9.6-12.0); Monocytes % 7.8 % (1.7-12.7); Neutrophils % 64.6 % (38.7-73.9); Platelet Count 85 T/CUMM (130-400); Red Blood Count 3.84 MC/CUMM (3.8-5.5); Red Cell Distribution Width 15.7 % (9.3-17.3); White Blood Count 4.2 T/CUMM (4-12)
[2021-05-04] MEDS ORDERED: hydrALAZINE 20 MG/1 ML VIAL IV STA (20:09)
[2021-05-04 20:12] LABS: Alanine Aminotransferase 20 U/L (16-61); Albumin 3.9 G/DL (3.4-5.0); Alkaline Phosphatase 115 U/L (45-117); Aspartate Amino Transferase 23 U/L (0-37); Blood Urea Nitrogen 17 MG/DL (7-18); Calcium 9.2 MG/DL (8.5-10.1); Carbon Dioxide 30 MMOL/L (21-32); Estimated Glom Filtration Rate 2 ML/MIN; Glucose 134 MG/DL (74-106); Osmolality,Calculated 280.5 MOS/KG (273-304); Potassium 3.5 MMOL/L (3.5-5.1); Sodium 139 MMOL/L (136-145); Total Protein 7.6 G/DL (6.4-8.2)
[2021-05-04 20:37] LABS: Bilirubin,Urine Negative (Negative); Blood, Urine Small mg/dL (Negative); Calcium Oxalate Crystals,Urine Occasional /HPF (Few); Glucose,Urine (UA) Negative (Negative); Hyaline Casts,Urine 4 /LPF (0-3); Ketones,Urine Negative (Negative); Mucus,Urine Occasional /LPF (Occasional); Nitrite,Urine Negative (Negative); Protein,Urine 100 MG/DL; RBC,Urine 21 /HPF (0-4); Squamous Epithelial Cell,Urine Occasional /HPF (0-10); Urine Appearance Slightly Hazy (Clear); Urine Color Amber (Yellow); Urine Specific Gravity 1.017 (1.001-1.035); Urine Urobilinogen < 2.0 EU/DL (0.2-1.0)
[2021-05-04 20:38] LABS: Barbiturates Screen,Urine Negative (Negative); Benzodiazepines Screen,Urine Negative (Negative); Cannabinoid Screen,Urine Negative (Negative); Opiate Screen,Urine Negative (Negative); Phencyclidine Screen,Urine Negative (Negative)
[2021-05-04] MEDS ORDERED: cefTRIAXone 1,000 MG in SODIUM CHLORIDE 0.9% 100 ML IV STA (20:53)
[2021-05-04] MEDS ORDERED: LABETALOL 20 MG/4 ML SYRINGE IV PRN (22:27)
[2021-05-04] MEDS ORDERED: GLUCAGON 1 MG VIAL IM PRN (22:37)
[2021-05-04] MEDS ORDERED: LORazepam 2 MG/1 ML VIAL IV PRN (22:55)
[2021-05-04] MEDS ORDERED: DEXTROSE 50% 25 GM/50 ML SYRINGE IV PRN (23:07)
[2021-05-05 05:14] LABS: Basophils % 0.2 % (0.0-0.8); Eosinophils # 0.1 10*3/uL (0.0-0.87); Eosinophils % 1.6 % (0.00-10.9); Hematocrit 30.8 VOL% (42.0-52.0); Hemoglobin 10.1 GM/DL (14.0-18.0); Immature Granulocytes % 0.5 %; Immature Granulocytes Absolute 0.02 #; Lymphocytes # 1.5 10*3/uL (1.4-4.0); Lymphocytes % 34.2 % (21.2-54.2); Mean Corpuscular HGB Conc 32.8 GM/DL (32-36); Mean Platelet Volume 12.7 FL (9.6-12.0); Monocytes % 10.7 % (1.7-12.7); Neutrophils % 52.8 % (38.7-73.9); Platelet Count 83 T/CUMM (130-400); Red Blood Count 3.21 MC/CUMM (3.8-5.5); Red Cell Distribution Width 15.7 % (9.3-17.3); White Blood Count 4.4 T/CUMM (4-12)
[2021-05-05 05:39] LABS: Risk Ratio 4.66
[2021-05-05 05:41] LABS: Hypochromasia Slight; Microcytosis Slight; Platelet Estimate Decreased
[2021-05-05] MEDS: PHENYTOIN 100 MG/2 ML VIAL IV SCH ×3 (06:38→23:14)
[2021-05-05] MEDS ORDERED: amLODIPine 10 MG TABLET PO ONE (09:11)
[2021-05-05] MEDS: INSULIN REGULAR 100 UNIT/ML SUBCUT SCH ×4 (09:32→20:11)
[2021-05-05] MEDS: LOSARTAN 25 MG TABLET PO SCH (10:34)
[2021-05-05] MEDS ORDERED: cefTRIAXone 1,000 MG in SODIUM CHLORIDE 0.9% 100 ML IV SCH (21:00)
[2021-05-05] MEDS: HEPARIN 5,000 UNIT/1 ML VIAL SUBCUT SCH (21:53)
[2021-05-06] MEDS: PHENYTOIN 100 MG/2 ML VIAL IV SCH ×3 (08:04→23:24)
[2021-05-06] MEDS: HEPARIN 5,000 UNIT/1 ML VIAL SUBCUT SCH ×2 (08:04→20:48)
[2021-05-06] MEDS: LOSARTAN 25 MG TABLET PO SCH (08:04)
[2021-05-06] MEDS: INSULIN REGULAR 100 UNIT/ML SUBCUT SCH ×4 (09:01→20:28)
[2021-05-06] MEDS ORDERED: VANCOMYCIN INJ 1,000 MG in SODIUM CHLORIDE 0.9% 250 ML IV ONE (11:36)
[2021-05-06] MEDS ORDERED: VANCOMYCIN INJ 500 MG in SODIUM CHLORIDE 0.9% 250 ML IV PRN (11:53)
[2021-05-06] MEDS ORDERED: VANCOMYCIN INJ 1,500 MG in SODIUM CHLORIDE 0.9% 500 ML IV ONE (13:00)
[2021-05-07] MEDS: PHENYTOIN 100 MG/2 ML VIAL IV SCH (13:50)
[2021-05-07] MEDS: INSULIN REGULAR 100 UNIT/ML SUBCUT SCH ×3 (13:50→21:04)
[2021-05-07] MEDS: LOSARTAN 25 MG TABLET PO SCH (13:50)
[2021-05-07] MEDS: HEPARIN 5,000 UNIT/1 ML VIAL SUBCUT SCH ×2 (13:50→21:04)
[2021-05-07] MEDS ORDERED: hydrALAZINE 20 MG/1 ML VIAL IV PRN (13:58)
[2021-05-07 16:08] LABS: Calcium 8.6 MG/DL (8.5-10.1); Osmolality,Calculated 290.3 MOS/KG (273-304); Potassium 3.7 MMOL/L (3.5-5.1)
[2021-05-08 06:40] LABS: Albumin 3.1 G/DL (3.4-5.0); Bilirubin,Total 0.8 MG/DL (0.20-1.00); Calcium 8.8 MG/DL (8.5-10.1); Osmolality,Calculated 294.3 MOS/KG (273-304); Potassium 3.9 MMOL/L (3.5-5.1)
[2021-05-08 06:47] LABS: Basophils % 0.4 % (0.0-0.8); Eosinophils # 0.1 10*3/uL (0.0-0.87); Eosinophils % 1.9 % (0.00-10.9); Hematocrit 30.5 VOL% (42.0-52.0); Hemoglobin 9.9 GM/DL (14.0-18.0); Immature Granulocytes % 0.4 %; Immature Granulocytes Absolute 0.02 #; Lymphocytes # 1.5 10*3/uL (1.4-4.0); Lymphocytes % 32.2 % (21.2-54.2); Mean Corpuscular HGB Conc 32.5 GM/DL (32-36); Mean Corpuscular Volume 96.5 FL (87-102); Monocytes % 7.7 % (1.7-12.7); Neutrophils % 57.4 % (38.7-73.9); Platelet Count 70 T/CUMM (130-400); Red Blood Count 3.16 MC/CUMM (3.8-5.5); Red Cell Distribution Width 15.4 % (9.3-17.3); White Blood Count 4.8 T/CUMM (4-12)
[2021-05-08 07:13] LABS: Hypochromasia 1+; Platelet Estimate Decreased
[2021-05-08 07:14] LABS: Microcytosis Slight
[2021-05-08] MEDS: INSULIN REGULAR 100 UNIT/ML SUBCUT SCH ×4 (08:40→21:30)
[2021-05-08] MEDS: HEPARIN 5,000 UNIT/1 ML VIAL SUBCUT SCH ×2 (09:05→21:30)
[2021-05-08] MEDS: LOSARTAN 50 MG TABLET PO SCH (09:05)
[2021-05-08] MEDS: amLODIPine 10 MG TABLET PO SCH (15:42)
[2021-05-08] MEDS: carvediloL 12.5 MG TABLET PO SCH (21:30)
[2021-05-09] MEDS: INSULIN REGULAR 100 UNIT/ML SUBCUT SCH ×4 (08:53→21:57)
[2021-05-09] MEDS: amLODIPine 10 MG TABLET PO SCH ×2 (09:03→22:15)
[2021-05-09] MEDS: LOSARTAN 50 MG TABLET PO SCH (09:03)
[2021-05-09] MEDS: carvediloL 12.5 MG TABLET PO SCH (09:03)
[2021-05-09] MEDS ORDERED: NITROGLYCERIN SL 0.4 MG TABLET SL PRN (14:53)
[2021-05-09] MEDS: HEPARIN 5,000 UNIT/1 ML VIAL SUBCUT SCH ×2 (15:53→22:15)
[2021-05-09] MEDS: MEGESTROL 40 MG TABLET PO SCH (22:15)
[2021-05-09] MEDS: VENLAFAXINE 75 MG TABLET PO SCH (22:15)
[2021-05-09] MEDS: ROSUVASTATIN 10 MG TABLET PO SCH (22:15)
[2021-05-09] MEDS: carvediloL 25 MG TABLET PO SCH (22:15)
[2021-05-09] MEDS: hydrALAZINE 25 MG TABLET PO SCH (22:15)
[2021-05-09] MEDS: DONEPEZIL 10 MG TABLET PO SCH (22:15)
[2021-05-09] MEDS: MEMANTINE 10 MG TABLET PO SCH (22:15)
[2021-05-10] MEDS: MEGESTROL 40 MG TABLET PO SCH ×2 (08:06→21:55)
[2021-05-10] MEDS: HEPARIN 5,000 UNIT/1 ML VIAL SUBCUT SCH ×2 (08:07→21:54)
[2021-05-10] MEDS: carvediloL 25 MG TABLET PO SCH ×2 (08:07→21:54)
[2021-05-10] MEDS: amLODIPine 10 MG TABLET PO SCH ×2 (08:07→21:55)
[2021-05-10] MEDS: hydrALAZINE 25 MG TABLET PO SCH ×2 (08:07→21:54)
[2021-05-10] MEDS: CLOPIDOGREL 75 MG TABLET PO SCH (08:07)
[2021-05-10] MEDS: MEMANTINE 10 MG TABLET PO SCH ×2 (08:07→21:55)
[2021-05-10] MEDS: LOSARTAN 50 MG TABLET PO SCH (08:07)
[2021-05-10] MEDS: INSULIN REGULAR 100 UNIT/ML SUBCUT SCH ×4 (08:55→21:48)
[2021-05-10] MEDS: ASPIRIN EC 81 MG TABLET PO SCH (10:59)
[2021-05-10] MEDS: PANTOPRAZOLE 40 MG TABLET PO SCH (10:59)
[2021-05-10] MEDS ORDERED: ACETAMINOPHEN 325 MG TABLET PO ONE (18:25)
[2021-05-10] MEDS: VENLAFAXINE 75 MG TABLET PO SCH (21:54)
[2021-05-10] MEDS: ROSUVASTATIN 10 MG TABLET PO SCH (21:54)
[2021-05-10] MEDS: DONEPEZIL 10 MG TABLET PO SCH (21:54)
[2021-05-11] MEDS: INSULIN REGULAR 100 UNIT/ML SUBCUT SCH ×4 (07:49→21:07)
[2021-05-11] MEDS: MEGESTROL 40 MG TABLET PO SCH ×2 (09:00→21:06)
[2021-05-11] MEDS: PANTOPRAZOLE 40 MG TABLET PO SCH (14:26)
[2021-05-11] MEDS: carvediloL 25 MG TABLET PO SCH ×2 (14:27→21:07)
[2021-05-11] MEDS: CLOPIDOGREL 75 MG TABLET PO SCH (14:27)
[2021-05-11] MEDS: hydrALAZINE 25 MG TABLET PO SCH ×2 (14:27→21:07)
[2021-05-11] MEDS: amLODIPine 10 MG TABLET PO SCH ×2 (14:27→21:06)
[2021-05-11] MEDS: LOSARTAN 50 MG TABLET PO SCH (14:27)
[2021-05-11] MEDS: MEMANTINE 10 MG TABLET PO SCH ×2 (14:27→21:07)
[2021-05-11] MEDS: HEPARIN 5,000 UNIT/1 ML VIAL SUBCUT SCH ×2 (14:27→21:08)
[2021-05-11] MEDS: ASPIRIN EC 81 MG TABLET PO SCH (14:27)
[2021-05-11] MEDS ORDERED: TUBERCULIN SKIN TEST 0.1 ML SYRINGE INTRADERM ONE (14:49)
[2021-05-11] MEDS: VENLAFAXINE 75 MG TABLET PO SCH (21:06)
[2021-05-11] MEDS: DONEPEZIL 10 MG TABLET PO SCH (21:07)
[2021-05-11] MEDS: ROSUVASTATIN 10 MG TABLET PO SCH (21:07)
[2021-05-12] MEDS: INSULIN REGULAR 100 UNIT/ML SUBCUT SCH ×2 (10:26→15:45)
[2021-05-12] MEDS: HEPARIN 5,000 UNIT/1 ML VIAL SUBCUT SCH (10:26)
[2021-05-12] MEDS: MEGESTROL 40 MG TABLET PO SCH (10:27)
[2021-05-12] MEDS: PANTOPRAZOLE 40 MG TABLET PO SCH (10:27)
[2021-05-12] MEDS: MEMANTINE 10 MG TABLET PO SCH (10:27)
[2021-05-12] MEDS: carvediloL 25 MG TABLET PO SCH (10:27)
[2021-05-12] MEDS: LOSARTAN 50 MG TABLET PO SCH (10:28)
[2021-05-12] MEDS: hydrALAZINE 25 MG TABLET PO SCH (10:28)
[2021-05-12] MEDS: ASPIRIN EC 81 MG TABLET PO SCH (10:28)
[2021-05-12] MEDS: CLOPIDOGREL 75 MG TABLET PO SCH (10:28)
[2021-05-12] MEDS: amLODIPine 10 MG TABLET PO SCH (10:29)
[2021-05-12 12:34] VITALS: BP 154/72
== END 2021-05-12 14:33 | disposition swing bed (61) | DRG 100 ==
LOC: EDUNIT# → EDBD → N.ED 18:31 → SUATTDRO 22:27 → N.ICU 22:27 → N.TELEN 05-05 00:24
PROVIDERS: ADMIT Internal Medicine; ATTEND Internal Medicine